=== PATIENT | female | born 1980 | race Caucasian/White ===

== ENCOUNTER 2016-09-10 19:18 | Emergency (ER) | payer OTHER ==
[2016-09-10 19:53] VITALS: BP 138/97
[2016-09-10] MEDS ORDERED: NALBUPHINE HCL 20 MG/ML AMPUL IM ONE (20:03)
--- NOTE | 2016-09-10 20:10 | ERNOTE ---
Lower Extremity HPI - Narrative Date of Service: 09/10/16 - General Lower Extremities Pain: hip: right Source: patient - Immun/Allergies/Home Medications Immunizations: IMMUNIZATION HX Immunizations Up to Date Yes History of Influenza Vaccine No Hx Pneumococcal Vaccination No Allergies/Adverse Reactions: Allergies Allergy/AdvReac Type Severity Reaction Status Date / Time lidocaine Allergy Mild swelling Verified 05/12/16 15:39 at site lithium AdvReac Severe Other Verified 05/12/16 15:39 trazodone AdvReac Intermediate PALPITATION Verified 05/12/16 15:39 S adhesive tape AdvReac Mild LATEX Verified 05/12/16 15:39 CLOTH TAPE RIPS SKIN OFF azithromycin [From Zithromax] AdvReac Mild diarrhea, Verified 05/12/16 15:39 vomiting cephalexin monohydrate AdvReac Mild Vomiting Verified 05/12/16 15:39 [From Keflex] clonazepam [From Klonopin] AdvReac Mild CRYING Verified 05/12/16 15:39 latex AdvReac Mild RASH Verified 05/12/16 15:39 milk AdvReac Mild Diarrhea Verified 05/12/16 15:39 onion AdvReac Mild RASH, GI Verified 05/12/16 15:39 UPSET povidone-iodine AdvReac Mild rash Verified 05/12/16 15:39 [From Betadine] ropinirole HCl [From Requip] AdvReac Mild Vomiting Verified 05/12/16 15:39 soap [From Betadine] AdvReac Mild rash Verified 05/12/16 15:39 Home Medications: HOME MEDICATIONS Metoprolol Succinate [Toprol Xl] 400 mg PO DAILY 12/08/14 [Last Taken Unknown] Albuterol Sulfate [Proair Hfa] 1 - 2 puff IH Q4H PRN #1 inhaler 10/30/15 [Last Taken Unknown] Fluticasone Propionate [Flonase] 2 spray NS DAILY PRN 12/06/15 [Last Taken Unknown] Mometasone Furoate [Asmanex] 1 puff IH DAILY 12/06/15 [Last Taken Unknown] Omeprazole [Prilosec] 40 mg PO BID 12/06/15 [Last Taken Unknown] Ondansetron [Zofran Odt] 4 mg PO Q8H PRN 12/06/15 [Last Taken Unknown] Cyclobenzaprine HCl [Flexeril] 10 mg PO TID PRN #30 tab 03/27/16 [Last Taken Unknown] - History of Present Illness Narrative: 36 year old with chronic right hip pain has an appointment for a cortisone injection in 5 days but is having so much pain she cannot sleep. She realizes I can not prescribe narcotics for chronic pain but states last time this happened she got a shot of Nubain in the ER and it worked very well and lasted for days Review of Systems - Review of Systems Constitutional: Present: no symptoms reported EYE: Present: no symptoms reported ENT: Present: no symptoms reported Respiratory: Present: no symptoms reported Cardiology: Present: no symptoms reported Gastrointestinal/Abdominal: Present: no symptoms reported Genitourinary: Present: no symptoms reported Musculoskeletal: Present: See HPI Skin: Present: no symptoms reported Neurological: Present: no symptoms reported Endocrine: Present: no symptoms reported Hematologic/Lymphatic: Present: no symptoms reported Psych: Present: no symptoms reported - Patient's Past Medical History Patient History - Medical: Anxiety, Chronic Pain, Diabetes Type 2, Depression, GERD, Migraines, Seizures Patient History - Cardiac/Respiratory: Hypertension, Hypertension Patient History - Cancer: No Hx of Cancer Patient History - Surgical Procedures: Appendectomy, Cholecystectomy, , Tubal Ligation, T & A LMP (females 10-50): now - Family History mom Family History - Medical: History Unknown dad Family History - Medical: History Unknown Family History - Cardiac/Respiratory: No pertinent hx - Social History Living Situations: home Smoking Status: Current every day smoker Have you smoked in the past 12 months: Yes Do you dip or chew tobacco: No Patient requests Smoking Cessation Consult: No Initiate information on Smoking Cessation: No Alcohol Use: none Drug Use: none Physical Exam - Physical Exam General Appearance: Present: wd/wn, alert, moderate distress, obese Eye Exam: Normal inspection: bilateral, PERRL: bilateral Ears, Nose, Throat: Present: normal ENT inspection, hearing grossly normal, normal pharynx Neck: Present: normal inspection, nontender Respiratory: Present: no respiratory distress, normal breath sounds, no accessory muscle use, chest nontender, lungs clear Cardiovascular/Chest: Present: regular rate, rhythm, no murmur, normal peripheral pulses Gastrointestinal/Abdominal: Present: normal bowel sounds, nontender, nondistended, soft, no organomegaly Rectal Exam: Present: deferred Back Exam: Present: normal inspection, normal range of motion, no CVA tenderness , no vertebral tenderness Extremity Exam: Present: normal inspection, no edema, other - Pain in right hip joint Neurological Exam: Present: alert, oriented, normal mood/affect, no motor/ sensory deficits Skin Exam: Present: normal color, warm/dry Lymphatic Exam: Present: no adenopathy ED Progress - Vital Signs Vital Signs: Vital Signs 09/10/16 19:48 Temperature 36.3 C L Pulse Rate 80 Respiratory 16 Rate Blood Pressure 138/97 O2 Sat by Pulse 97 Oximetry - Progress/Reassessment Chief Complaint: Hip Pain/Injury Plan - Plan Plan: IM Nubain Departure Clinical Impression: Chronic right hip pain - Departure Disposition: Home self-care Condition: Fair Instructions: Hip Pain Additional Instructions: follow up with Dr. Diego Jessica as planned Referrals: Joel Meraz MD [Primary Care Provider] -
[2016-09-10] MEDS ORDERED: NALBUPHINE HCL 20 MG/ML AMPUL ONE (20:11)
== END 2016-09-10 20:21 | disposition home or self-care (01) ==
LOC: ER 19:18
DX: G89.29 Other chronic pain (principal); M25.551 Pain in right hip; F17.210 Nicotine dependence, cigarettes, uncomplicated; Z90.49 Acquired absence of other specified parts of digestive tract; K21.9 Gastro-esophageal reflux disease without esophagitis; I10 Essential (primary) hypertension

== ENCOUNTER 2016-09-14 09:26 | Emergency (ER) | payer OTHER ==
--- NOTE | 2016-09-14 09:56 | ERNOTE ---
Lower Extremity HPI - Narrative Date of Service: 09/14/16 - General Lower Extremities Pain: hip: right Time Seen by Provider: 09/14/16 09:55 Source: patient Exam Limitations: no limitations - Immun/Allergies/Home Medications Immunizations: IMMUNIZATION HX Immunizations Up to Date Yes History of Influenza Vaccine No Hx Pneumococcal Vaccination No Allergies/Adverse Reactions: Allergies Allergy/AdvReac Type Severity Reaction Status Date / Time lidocaine Allergy Mild swelling Verified 09/14/16 09:41 at site lithium AdvReac Severe Other Verified 09/14/16 09:41 trazodone AdvReac Intermediate PALPITATION Verified 09/14/16 09:41 S adhesive tape AdvReac Mild LATEX Verified 09/14/16 09:41 CLOTH TAPE RIPS SKIN OFF azithromycin [From Zithromax] AdvReac Mild diarrhea, Verified 09/14/16 09:41 vomiting cephalexin monohydrate AdvReac Mild Vomiting Verified 09/14/16 09:41 [From Keflex] clonazepam [From Klonopin] AdvReac Mild CRYING Verified 09/14/16 09:41 latex AdvReac Mild RASH Verified 09/14/16 09:41 milk AdvReac Mild Diarrhea Verified 09/14/16 09:41 onion AdvReac Mild RASH, GI Verified 09/14/16 09:41 UPSET povidone-iodine AdvReac Mild rash Verified 09/14/16 09:41 [From Betadine] ropinirole HCl [From Requip] AdvReac Mild Vomiting Verified 09/14/16 09:41 soap [From Betadine] AdvReac Mild rash Verified 09/14/16 09:41 Home Medications: HOME MEDICATIONS Metoprolol Succinate [Toprol Xl] 400 mg PO DAILY 12/08/14 [Last Taken Unknown] Albuterol Sulfate [Proair Hfa] 1 - 2 puff IH Q4H PRN #1 inhaler 10/30/15 [Last Taken Unknown] Fluticasone Propionate [Flonase] 2 spray NS DAILY PRN 12/06/15 [Last Taken Unknown] Mometasone Furoate [Asmanex] 1 puff IH DAILY 12/06/15 [Last Taken Unknown] Omeprazole [Prilosec] 40 mg PO BID 12/06/15 [Last Taken Unknown] Ondansetron [Zofran Odt] 4 mg PO Q8H PRN 12/06/15 [Last Taken Unknown] Cyclobenzaprine HCl [Flexeril] 10 mg PO TID PRN #30 tab 03/27/16 [Last Taken Unknown] Cyclobenzaprine HCl [Flexeril] 10 mg PO TID PRN #30 tab 09/14/16 [Last Taken Unknown] Naproxen [Naprosyn] 500 mg PO BID #60 tablet 09/14/16 [Last Taken Unknown] - History of Present Illness Occurred: other - chronic Other Injuries: Reports: none Prior Treament: Reports: treated by physician Review of Systems - Review of Systems Constitutional: Present: See HPI EYE: Present: no symptoms reported ENT: Present: no symptoms reported Respiratory: Present: no symptoms reported Cardiology: Present: no symptoms reported Gastrointestinal/Abdominal: Present: no symptoms reported Genitourinary: Present: no symptoms reported Musculoskeletal: Present: muscle pain, joint pain Skin: Present: no symptoms reported Neurological: Present: no symptoms reported Endocrine: Present: no symptoms reported Hematologic/Lymphatic: Present: no symptoms reported Psych: Present: no symptoms reported - Patient's Past Medical History Patient History - Medical: Anxiety, Chronic Pain, Diabetes Type 2, Depression, GERD, Migraines, Seizures Patient History - Cardiac/Respiratory: Hypertension, Hypertension Patient History - Cancer: No Hx of Cancer Patient History - Surgical Procedures: Appendectomy, Cholecystectomy, , Tubal Ligation, T & A - Family History mom Family History - Medical: History Unknown dad Family History - Medical: History Unknown Family History - Cardiac/Respiratory: No pertinent hx - Social History Living Situations: home Alcohol Use: none Drug Use: none Physical Exam - Physical Exam General Appearance: Present: wd/wn, alert, moderate distress Eye Exam: Normal inspection: bilateral, PERRL: bilateral Ears, Nose, Throat: Present: normal ENT inspection, hearing grossly normal, normal pharynx Neck: Present: normal inspection, nontender Respiratory: Present: no respiratory distress, normal breath sounds, no accessory muscle use, chest nontender, lungs clear Cardiovascular/Chest: Present: no murmur, normal peripheral pulses, tachycardia Gastrointestinal/Abdominal: Present: normal bowel sounds, nontender, nondistended, soft, no organomegaly Rectal Exam: Present: deferred Back Exam: Present: normal inspection, normal range of motion Extremity Exam: Present: normal inspection, no edema, other - tenderness along the IT Band Neurological Exam: Present: alert, oriented, normal mood/affect Skin Exam: Present: normal color, warm/dry Lymphatic Exam: Present: no adenopathy ED Progress - Vital Signs Patient's Vital Signs:: I have reviewed the patient's vital signs. Vital Signs: Vital Signs 09/14/16 09:36 Temperature 36.4 C L Pulse Rate 111 H Respiratory 12 Rate Blood Pressure 147/98 O2 Sat by Pulse 98 Oximetry - Progress/Reassessment Chief Complaint: Hip Pain/Injury Progress:: Improved - Transfer of Care Expected Disposition: Discharge Plan - Plan Plan: Pt will be started on NSAID's and a muscle relaxer. She would likely benefit from a compounded NSAID cream for further pain and inflammation management. Departure Clinical Impression: IT band syndrome Qualifiers: Laterality: right Qualified Code(s): M76.31 - Iliotibial band syndrome, right leg - Departure Disposition: Home self-care Condition: Good Instructions: Iliotibial Band Syndrome Referrals: Joel Meraz MD [Primary Care Provider] - Prescriptions: Cyclobenzaprine HCl [Flexeril] 10 mg PO TID PRN #30 tab PRN Reason: MUSCLE SPASMS Naproxen [Naprosyn] 500 mg PO BID #60 tablet
[2016-09-14] MEDS ORDERED: ORPHENADRINE CITRATE 30 MG/ML VIAL IM ONE (10:13)
[2016-09-14] MEDS ORDERED: KETOROLAC TROMETHAMINE 30 MG/ML VIAL IM ONE (10:13)
[2016-09-14] MEDS ORDERED: KETOROLAC TROMETHAMINE 60 MG/2 ML VIAL IM ONE (10:15)
[2016-09-14] MEDS ORDERED: ORPHENADRINE CITRATE 30 MG/ML VIAL ONE (10:15)
[2016-09-14 10:33] VITALS: BP 135/99
== END 2016-09-14 10:46 | disposition home or self-care (01) ==
LOC: ER 09:26
DX: M76.31 Iliotibial band syndrome, right leg (principal); Z90.49 Acquired absence of other specified parts of digestive tract; K21.9 Gastro-esophageal reflux disease without esophagitis; I10 Essential (primary) hypertension

== ENCOUNTER 2016-09-21 13:22 | Emergency (ER) | payer OTHER ==
[2016-09-21 13:39] VITALS: BP 155/100
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
[2016-09-21] MEDS ORDERED: KETOROLAC TROMETHAMINE 60 MG/2 ML VIAL IM ONE ×2 (14:07→14:19)
[2016-09-21] MEDS ORDERED: HYDROcodone/ACETAMINOPHEN 1 EACH TABLET PO ONE (14:07)
[2016-09-21] MEDS ORDERED: HYDROcodone/ACETAMINOPHEN 1 EACH TABLET ONE (14:19)
== END 2016-09-21 15:14 | disposition home or self-care (01) ==
LOC: ER 13:22
DX: M54.5 Low back pain (principal); G89.29 Other chronic pain; M25.551 Pain in right hip; F17.200 Nicotine dependence, unspecified, uncomplicated

== ENCOUNTER 2016-09-24 17:08 | Emergency (ER) | payer OTHER ==
[2016-09-24 17:24] VITALS: BP 163/93
== END 2016-09-24 19:34 | disposition left against medical advice (07) ==
LOC: ER 17:08
DX: Z53.21 Procedure and treatment not carried out due to patient leaving prior to being seen by health care provider (principal)

== ENCOUNTER 2016-10-21 10:31 | Emergency (ER) | payer OTHER ==
[2016-10-21] MEDS ORDERED: NORMAL SALINE 1,000 ML IV ONE (10:49)
[2016-10-21] MEDS ORDERED: METOCLOPRAMIDE HCL 5 MG/ML VIAL IV ONE (10:49)
[2016-10-21] MEDS ORDERED: KETOROLAC TROMETHAMINE 30 MG/ML VIAL IV ONE (10:49)
--- NOTE | 2016-10-21 10:49 | ERNOTE ---
Medical Problem HPI - Narrative Date of Service: 10/21/16 - General Chief Complaint: Nausea/Vomiting Time Seen by Provider: 10/21/16 10:44 Source: patient Exam Limitations: no limitations - Immun/Allergies/Home Medications Immunizations: IMMUNIZATION HX Immunizations Up to Date Yes History of Influenza Vaccine Yes Hx Pneumococcal Vaccination No Allergies/Adverse Reactions: Allergies lidocaine Allergy (Mild, Verified 10/21/16 10:44) swelling at site lithium Adverse Reaction (Severe, Verified 10/21/16 10:44) Other Suicidal ideations trazodone Adverse Reaction (Intermediate, Verified 10/21/16 10:44) PALPITATIONS adhesive tape Adverse Reaction (Mild, Verified 10/21/16 10:44) LATEX CLOTH TAPE RIPS SKIN OFF azithromycin [From Zithromax] Adverse Reaction (Mild, Verified 10/21/16 10:44) diarrhea, vomiting cephalexin monohydrate [From Keflex] Adverse Reaction (Mild, Verified 10/21/16 10:44) Vomiting clonazepam [From Klonopin] Adverse Reaction (Mild, Verified 10/21/16 10:44) CRYING latex Adverse Reaction (Mild, Verified 10/21/16 10:44) RASH milk Adverse Reaction (Mild, Verified 10/21/16 10:44) Diarrhea onion Adverse Reaction (Mild, Verified 10/21/16 10:44) RASH, GI UPSET povidone-iodine [From Betadine] Adverse Reaction (Mild, Verified 09/24/16 17:24) rash ropinirole HCl [From Requip] Adverse Reaction (Mild, Verified 09/24/16 17:24) Vomiting soap [From Betadine] Adverse Reaction (Mild, Verified 09/24/16 17:24) rash Home Medications: HOME MEDICATIONS Metoprolol Succinate [Toprol Xl] 400 mg PO DAILY 12/08/14 [Last Taken Unknown] Albuterol Sulfate [Proair Hfa] 1 - 2 puff IH Q4H PRN #1 inhaler 10/30/15 [Last Taken Unknown] Fluticasone Propionate [Flonase] 2 spray NS DAILY PRN 12/06/15 [Last Taken Unknown] Mometasone Furoate [Asmanex] 1 puff IH DAILY 12/06/15 [Last Taken Unknown] Omeprazole [Prilosec] 40 mg PO BID 12/06/15 [Last Taken Unknown] Ondansetron [Zofran Odt] 4 mg PO Q8H PRN 12/06/15 [Last Taken Unknown] Cyclobenzaprine HCl [Flexeril] 10 mg PO TID PRN #30 tab 09/14/16 [Last Taken Unknown] Naproxen [Naprosyn] 500 mg PO BID #60 tablet 09/14/16 [Last Taken Unknown] Methylprednisolone [Medrol Dosepak] 4 mg PO DAILY #21 tab.ds.pk 09/21/16 [Last Taken Unknown] Bisacodyl [Dulcolax] 5 mg PO BID #6 tab 10/21/16 [Last Taken Unknown] Docusate Sodium [Doc-Q-Lace] 100 mg PO BID 10/21/16 [Last Taken Unknown] Magnesium Citrate [Citrate of Magnesia] 300 ml PO TID #9 btl 10/21/16 [Last Taken Unknown] Metoclopramide HCl [Reglan] 5 mg PO ACHS #12 tab 10/21/16 [Last Taken Unknown] Oxycodone HCl/Acetaminophen [Percocet 10-325 mg Tablet] 7.5 mg PO PRN PRN [Last Taken Unknown] Sulindac 200 mg PO BID #6 tab 10/21/16 [Last Taken Unknown] - History of Present History Narrative: Was discharged from [facility] 2 days ago after a hysterectomy. Ovaries left intact. Several episodes of vomiting daily since, and nauseated today. Sent home with Percocet for pain. One bowel movement yesterday with hard textured stool. Bladder working ok. No fever. LLQ and midline low abdominal pain. Timing: constant Severity: moderate, severe Modifying Factors - (Improves): Present: other - nothing Modifying Factors - (Worsens): Present: eating Review of Systems - Review of Systems Constitutional: Present: no symptoms reported EYE: Present: no symptoms reported ENT: Present: no symptoms reported Respiratory: Present: no symptoms reported Cardiology: Present: no symptoms reported Gastrointestinal/Abdominal: Present: See HPI Genitourinary: Present: See HPI Musculoskeletal: Present: no symptoms reported Skin: Present: no symptoms reported Neurological: Present: no symptoms reported Endocrine: Present: no symptoms reported Hematologic/Lymphatic: Present: no symptoms reported Psych: Present: no symptoms reported - Patient's Past Medical History Patient History - Medical: Anxiety, Chronic Pain, Diabetes Type 2, Depression, GERD, Migraines, Seizures Patient History - Cardiac/Respiratory: No pertinent hx Patient History - Cancer: No Hx of Cancer Patient History - Surgical Procedures: Appendectomy, Cholecystectomy, , Hysterectomy, Tubal Ligation, T & A Patient History - Other: None LMP (females 10-50): 1 month - Family History mom Family History - Medical: History Unknown dad Family History - Medical: History Unknown Family History - Cardiac/Respiratory: No pertinent hx - Social History Living Situations: spouse Abuse History: No History of abuse Psych History: Hx of Anxiety, Hx of Depression Smoking Status: Current every day smoker Have you smoked in the past 12 months: Yes Do you dip or chew tobacco: No Patient requests Smoking Cessation Consult: No Initiate information on Smoking Cessation: No Alcohol Use: none Drug Use: none - Immunizations Immunizations Up to Date: Yes Hx Pneumococcal Vaccination: No History of Influenza Vaccine: Yes Physical Exam - Physical Exam General Appearance: Present: wd/wn, no apparent distress Eye Exam: Normal inspection: bilateral, PERRL: bilateral, EOMI: bilateral Ears, Nose, Throat: Present: normal ENT inspection, hearing grossly normal Neck: Present: normal inspection, nontender Respiratory: Present: no respiratory distress, normal breath sounds Cardiovascular/Chest: Present: regular rate, rhythm, no murmur Gastrointestinal/Abdominal: Present: normal bowel sounds, nondistended, soft, no organomegaly, tenderness - minimal tenderness low midnight and LLQ Back Exam: Present: normal inspection, no CVA tenderness, no vertebral tenderness Extremity Exam: Present: normal inspection, no edema Neurological Exam: Present: alert, oriented, normal mood/affect Skin Exam: Present: normal color, warm/dry ED Progress - Results and Orders Patient's Lab Results:: I have reviewed the patient's lab results. - Vital Signs Patient's Vital Signs:: I have reviewed the patient's vital signs. Vital Signs: Vital Signs 10/21/16 10:33 Temperature 37.0 C Pulse Rate 89 Respiratory 15 Rate Blood Pressure 129/94 O2 Sat by Pulse 95 Oximetry - X-Ray X-Ray #1 X-Ray: abdomen Interpretation: Interp. by me - constipation - Progress/Reassessment Chief Complaint: Nausea/Vomiting Progress Note-Subjective: 10/21/16 13:09 eating now without any difficulty. still no bm. refused rectal suppository. Departure - Departure Clinical Impression: Abdominal pain Qualifiers: Abdominal location: left lower quadrant Qualified Code(s): R10.32 - Left lower quadrant pain Constipation Qualifiers: Constipation type: slow transit constipation Qualified Code(s): K59.01 - Slow transit constipation Disposition: Home self-care Condition: Good Instructions: Constipation, Adult, [id number] Additional Instructions: Followup with Dr. Kearns in 4 days. Prescriptions: Bisacodyl [Dulcolax] 5 mg PO BID #6 tab Magnesium Citrate [Citrate of Magnesia] 300 ml PO TID #9 btl Metoclopramide HCl [Reglan] 5 mg PO ACHS #12 tab Sulindac 200 mg PO BID #6 tab
[2016-10-21] MEDS ORDERED: BISACODYL 10 MG SUPP.RECT RC ONE ×2 (10:51→10:54)
[2016-10-21] MEDS ORDERED: KETOROLAC TROMETHAMINE 30 MG/ML VIAL ONE (10:55)
[2016-10-21] MEDS ORDERED: METOCLOPRAMIDE HCL 5 MG/ML VIAL ONE (10:55)
[2016-10-21 10:57] LABS: Urine Bilirubin Negative (NEGATIVE); Urine Ketone Negative (NEGATIVE); Urine Nitrite Negative (NEGATIVE); Urine Protein Negative (NEGATIVE); Urine Urobilinogen Normal (NORMAL)
--- OUTSIDE RECORDS SUMMARY | 2016-10-21 11:00 | XMS REPORT | Summary of Care ---
:1980 Author Organization [facility] Address [address] [place] [phone]- Care Team Providers Name Role Phone Joel Kearns Primary Care Physician Encounter Date(s): 09/27/16 - 09/27/[address] [address]- [facility] Discharge Disposition: 01 Discharged to Home or Self Care Attending Physician: Geoff Peters MD Admitting Physician: Geoff Peters MD Vital Signs No data available for this section Problem List Condition Effective Dates Status Health Status Informant (Confirmed) < 2004 Resolved (Confirmed) < 1999 Resolved (Confirmed) < 2005 Resolved (Confirmed) < 2004 Resolved (Confirmed) < 12/09/04 Resolved (Confirmed) < 02/19/01 Resolved (Confirmed) < 03/27/02 Resolved (Confirmed) < 11/07/03 Resolved Allergies, Adverse Reactions, Alerts Substance Reaction Severity Status Adhesive Bandage Skin adhesive Active Betadine Rash Active Keflex Vomit Active Latex Rash Active lidocaine Swelling Active Zithromax Sick Active Medications ALPRAZolam 0.25 mg oral tablet 1 tab(s), Oral, TID, 0 Refill(s), Start Date: 04/26/16 15:13:00 CDT Start Date: 04/26/16 Status: Orderedamoxicillin 500 mg oral tablet 1 tab(s), Oral, TID, # 30 tab(s), 0 Refill(s), Start Date: 05/09/16 11:41:00 CDT Start Date: 05/09/16 Stop Date: 05/15/16 Status: CompletedAsmanex Twisthaler 110 mcg=, Inhale, Daily, 0 Refill(s), Start Date: 04/26/16 15:15:00 CDT Start Date: 04/26/16 Status: Orderedatorvastatin 40 mg oral tablet 1 tab(s), Oral, Daily, 0 Refill(s), Start Date: 04/26/16 15:15:00 CDT Start Date: 04/26/16 Status: Orderedcetirizine 10 mg oral tablet tab(s), Oral, Daily, 0 Refill(s), Start Date: 04/26/16 15:14:00 CDT Start Date: 04/26/16 Stop Date: 05/02/16 Status: Discontinuedcyclobenzaprine 10 mg oral tablet 1 tab(s), Oral, TID, PRN for spasm, # 30 tab(s), 0 Refill(s), Start Date: 15:14:00 CDT Start Date: 04/26/16 Stop Date: 05/09/16 Status: CompletedDexilant 60 mg oral delayed release capsule 1 cap(s), Oral, Daily, # 30 cap(s), 2 Refill(s), Start Date: 05/15/16 8:41:00 CDT, Pharmacy: [facility] Start Date: 05/15/16 Status: Ordereddicyclomine 10 mg oral capsule See Instructions, PRN abdominal pain, 1-2 cap(s) Oral up to four times a day, # 60 cap(s), 1 Refill(s), Start Date: 07/25/16 9:25:00 HULL SORTER, Pharmacy: [facility] Start Date: 07/25/16 Stop Date: 09/14/16 Status: Completeddicyclomine 10 mg oral capsule 2 cap(s), Oral, QID, PRN abdominal pain, # 60 cap(s), 1 Refill(s), Start Date: 05/15/16 8:39:00 CDT, Pharmacy: [facility] Start Date: 05/15/16 Status: Ordereddiphenoxylate-atropine 2.5 mg-0.025 mg oral tablet See Instructions, PRN as needed for loose stool, 1-2 tab(s) Oral up to four times a day, # 60 tab(s), 0 Refill(s), Start Date: 07/03/16 13:55:00 CDT, Pharmacy: [place], [place] Start Date: 07/03/16 Stop Date: 09/14/16 Status: Completeddivalproex sodium 500 mg oral tablet, extended release tab(s), Oral, Daily, 0 Refill(s), Start Date: 04/26/16 15:14:00 CDT Start Date: 04/26/16 Stop Date: 05/09/16 Status: Completedfluticasone 50 mcg/inh nasal spray 1 spray(s), Nasal, Daily, 0 Refill(s), Start Date: 04/26/16 15:16:00 CDT Start Date: 04/26/16 Status: OrderedLiletta 52 mg intrauterine device 1 EA, Intrauteral, ONETIME, 0 Refill(s), Start Date: 06/16/16 10:58:00 CDT Start Date: 06/16/16 Status: Orderedmeloxicam 15 mg oral tablet 1 tab(s), Oral, Daily, # 30 tab(s), 5 Refill(s), Start Date: 09/22/16 15:12:00 HULL SORTER, Pharmacy: [place], [place] Start Date: 09/22/16 Status: Orderedmetoprolol succinate 200 mg oral tablet, extended release 2 tab(s), Oral, Daily, # 30 tab(s), 0 Refill(s), Start Date: 05/09/16 11:40:00 CDT Start Date: 05/09/16 Status: Orderedmetoprolol tartrate BID, 0 Refill(s), Start Date: 04/26/16 15:13:00 CDT Start Date: 04/26/16 Stop Date: 05/09/16 Status: Completedomeprazole 40 mg oral delayed release capsule 1 cap(s), Oral, Daily, 0 Refill(s), Start Date: 04/26/16 15:14:00 CDT Start Date: 04/26/16 Status: Orderedranitidine 300 mg oral tablet 1 tab(s), Oral, HS, 0 Refill(s), Start Date: 04/26/16 15:15:00 CDT Start Date: 04/26/16 Status: OrderedrisperiDONE 2 mg oral tablet 1 tab(s), Oral, HS, 0 Refill(s), Start Date: 04/26/16 15:14:00 CDT Start Date: 04/26/16 Status: Orderedsertraline 50 mg oral tablet tab(s), Oral, Daily, 0 Refill(s), Start Date: 04/26/16 15:15:00 CDT Start Date: 04/26/16 Stop Date: 05/02/16 Status: DiscontinuedTylenol with Codeine #3 oral tablet 1 tab(s), Oral, q4hr, PRN for pain, # 12 tab(s), 0 Refill(s), Start Date: 11:17:00 CDT, Pharmacy: [place] Start Date: 06/16/16 Stop Date: 06/30/16 Status: CompletedVentolin HFA 2 puff(s), Inhale, QID, PRN as needed for wheezing, 0 Refill(s), Start Date: 15:15:00 CDT Start Date: 04/26/16 Status: OrderedZofran 4 mg oral tablet 1 tab(s), Oral, q8hr interval, PRN nausea, 0 Refill(s), Start Date: 04/26/16 15: 15:00 CDT Start Date: 04/26/16 Status: Ordered Results No data available for this section Immunizations No data available for this section Procedures Procedure Date Related Diagnosis Body Site Esophagogastroduodenoscopy1 05/11/16 Hysteroscopy 09/2015 Miscellaneous operations2 2012 Appendectomy 2012 Colposcopy 2010 Cone biopsy 2010 TL - Tubal ligation 01/01/09 section 2005 Cholecystectomy 2004 Tonsillectomy and adenoidectomy 1986 Dilation and curettage3 1auto-populated from documented surgical [id number] worked on 3 times throughout 2012 and [id number] Social History No data available for this section Assessment and Plan No data available for this section
--- OUTSIDE RECORDS SUMMARY | 2016-10-21 11:00 | XMS REPORT | Continuity of Care Document ---
:1980 Author Organization [facility] [place] [address] Care Team Providers Name Role Phone Unavailable Primary Care Provider Unavailable Source Comments This disclosure is being made pursuant to the [employer] program and maynot contain all information available regarding this patient.[facility] Active Allergies and Adverse Reactions Not on File Current Medications Be aware that medications may not be up to date as of this document. Alwaysverify current medications with the patient. Not on file Active Problems Not on file Social History Tobacco Use Types Packs/Day Years Used Date Current Every Day Smoker Plan of Care Health Maintenance Due Date Last Done Comments Retired-Pertussis Vaccine Adult 1998 Retired-Tetanus Vaccine Adult 1998 Pap Smear 2000 Retired-INFLUENZA VACCINE 05/04/2015 Results from Last 3 Months Not on file
--- OUTSIDE RECORDS SUMMARY | 2016-10-21 11:00 | XMS REPORT | Summary of Care ---
:1980 Author Organization [facility] Address [address] [place] [address]- Care Team Providers Name Role Phone Joel Kearns Primary Care Physician Encounter Date(s): 10/12/16 - 10/12/[address] [address]- [facility] Discharge Disposition: 01 Discharged to Home or Self Care Attending Physician: Jewels Brown MD Vital Signs No data available for [...] Refill(s), Start Date: 05/15/16 8:41:00 CDT, Pharmacy: [facility] Start Date: 05/15/16 Status: Ordereddicyclomine 10 mg oral capsule See Instructions, PRN abdominal pain, 1-2 cap(s) Oral up to four times a day, # 60 cap(s), 1 Refill(s), Start Date: 07/25/16 9:25:00 SAFETY ADMINISTRATOR, Pharmacy: [facility] Special Instructions: 1-2 cap(s) Oral up to four times a day Start Date: 07/25/16 Stop Date: 09/14/16 Status: Completeddicyclomine 10 mg oral capsule 2 cap(s), Oral, QID, PRN abdominal pain, # 60 cap(s), 1 Refill(s), Start Date: 05/15/16 8:39:00 CDT, Pharmacy: [facility] Start Date: 05/15/16 Status: Ordereddiphenoxylate-atropine 2.5 mg-0.025 mg oral tablet See Instructions, PRN as needed for loose stool, 1-2 tab(s) Oral up to four times a day, # 60 tab(s), 0 Refill(s), Start Date: 07/03/16 13:55:00 CDT, Pharmacy: [place], [place] Special Instructions: 1-2 tab(s) Oral up to four times a day Start Date: 07/03/16 Stop Date: 09/14/16 Status: [...] tab(s), 5 Refill(s), Start Date: 09/22/16 15:12:00 SAFETY ADMINISTRATOR, Pharmacy: [place], [place] Start Date: 09/22/16 Status: Orderedmetoprolol succinate [...] 0 Refill(s), Start Date: 11:17:00 CDT, [place] Start Date: 06/16/16 Stop Date: 06/30/16 [...] Dilation and curettage3 1auto-populated from documented surgical [id number] worked on 3 times throughout 2012 and [id number] Social History No data available for this section Assessment and Plan No data available for this section
--- OUTSIDE RECORDS SUMMARY | 2016-10-21 11:00 | XMS REPORT | Continuity of Care Document ---
:1980 Author Organization [facility] ([facility]) Address [address] [place] [address] Phone [phone] Care Team Providers Name Role Phone Joel Kearns Primary Care Provider [phone] Source Comments This disclosure is being made pursuant to the Care Everywhere program, applicable federal and state laws, and may not contain all informaitonavailable regarding this patient.[facility] ([facility]) Active Allergies and Adverse Reactions Allergen Noted Date Severity Reactions Comments Azithromycin Nausea & Vomiting Cephalexin 02/17/2016 Unknown Cephalosporins Urticaria (Hives),Nausea & Vomiting Clonazepam 02/17/2016 Unknown Iodine Urticaria (Hives) topical Latex 02/17/2016 Unknown Lidocaine Angioedema,Unknown Milk Containing Products Nausea & Vomiting Onion Urticaria (Hives) Ropinirole 02/17/2016 Unknown Tetanus Toxoid, Adsorbed Urticaria (Hives),Angioedema Trazodone 02/17/2016 Unknown Trimethobenzamide (Bulk) Nausea & Vomiting Current Medications Prescription Sig. Disp. Refills Start Date End Date Status ondansetron 4 mg 4mg every 8hours as 11/26/2015 Active disintegrating tablet needed by mouth SERTraline 50 mg tablet take 1 tablet (50 12/20/2015 Active mg) by oral route once daily metoPROLol succinate Take 300 mg by 01/11/2016 01/05/2017 Active 100 mg XL tablet mouth daily. 3 by mouth at the same time once daily traMADol 50 mg tablet take 2 tablets (100 11/26/2015 Active mg) by oral route 4 times a day the same time as naproxen. ALPRAZolam 0.25 mg take 1 tablet (0.25 12/20/2015 Active tablet mg) by oral route 3 times per day PRN for anxiety omeprazole 40 mg take 1 capsule by 11/16/2015 Active enteric coated capsule oral route 2 times a day SYRINGE-NEEDLE,INSULIN, AIMS EVERY 6 01/11/2016 Active 0.5 ML (AIMSCO INSULIN MONTHS. 01/11/16 SYRINGE NA ) ALBUTEROL SULFATE 1-2 puffs every Active (BULK) NA 4-6hours prn given in ER 10-30-15 mometasone (ASMANEX) inhale 1 puff (220 11/26/2015 11/20/2016 Active 220 mcg (120 doses) mcg) by inhalation inhaler route once a day cetirizine 10 mg tablet take 1 tablet (10 11/26/2015 11/20/2016 Active mg) by oral route once daily divalproex 250 mg ER Take 500 mg by 09/27/2015 Active tablet 24 hour mouth daily. 1 by mouth at night with the sleeping pill, to block headache. fluticasone 50 spray 2 sprays (100 11/26/2015 11/20/2016 Active mcg/Actuation nasal mcg) in each spray nostril by intranasal route once daily (uses PRN) atorvastatin 40 mg Take 40 mg by mouth Active tablet every evening. Active Problems Problem Noted Date Atypical chest pain 02/17/2016 Anxiety 02/16/2016 Depression 02/16/2016 History of pancreatitis 02/16/2016 Seizure disorder 02/16/2016 Psychophysiological insomnia 11/29/2015 Herpes simplex virus (HSV) infection 08/18/2015 Irregular menstrual cycle 08/03/2015 Dysmenorrhea 08/03/2015 Restless legs syndrome 11/12/2014 Migraine 11/12/2014 Benign essential hypertension 11/12/2014 Personal history of tobacco use, presenting hazards to health 11/12/2014 HTN (hypertension) Palpitation Resolved Problems Problem Noted Date Resolved Date Other convulsions 01/21/2007 02/16/2016 Unspecified symptom associated with female genital organs 07/30/20062015 Most Recent Encounters Date Type Specialty Providers Description 10/20/2016 Lab Requisition Pathology [facility], [facility] Social History Tobacco Use Types Packs/Day Years Used Date Light Tobacco Smoker Cigarettes 0.25 15 Smokeless Tobacco: Never Used Tobacco Cessation:Ready to Quit: No; Counseling Given: Yes Comments: Alcohol Use Drinks/Week oz/Week Comments No Last Filed Vital Signs Vital Sign Reading Time Taken Blood Pressure 124/76 02/17/2016 12:55 PM CDT Pulse 70 02/17/2016 12:55 PM CDT Temperature 36.5 C (97.7 F) 02/17/2016 12:55 PM CDT Respiratory Rate 18 02/11/2009 5:38 AM CDT Height 1.676 m (5' 6") 02/17/2016 12:55 PM CDT Weight 101.152 kg (223 lb) 02/17/2016 12:55 PM CDT Body Mass Index 36.01 02/17/2016 12:55 PM CDT Oxygen Saturation 99% 02/11/2009 5:38 AM CDT Plan of Care Health Maintenance Due Date Last Done Comments Hepatitis B Vaccine (1 of 3 - Primary Series) 1980 DIABETIC: Cholesterol 1997 Diabetic: Hdl 1997 DIABETIC: Hemoglobin A1C 1997 Diabetic: Ldl 1997 DIABETIC: Microalbumin 1997 DIABETIC: Triglycerides 1997 MMR Vaccine 1997 Pneumococcal Vaccine (1 of 1 - PPSV23) 1998 Cervical Cancer Screening 2009 DIABETIC: Foot Exam 02/17/2016 DIABETIC: Retinal Eye Exam 02/17/2016 Influenza Vaccine: Seasonal (#1) 04/03/2016 Results from Last 3 Months SURGICAL PATHOLOGY EXAM (10/19/2016 9:00 AM) Component Value Range Case Report Surgical Pathology Case: [id number] Authorizing Provider:[facility], [facility] Collected: 10/19/2016 09:00 AM Pathologist: Nickie Rain MD Received: 10/20/2016 08:40 AM Specimens: A) - Outside material, 14 slides, 2 blocks labeled [id number] B) - Outside material Diagnosis Uterus and bilateral fallopian tubes, hysterectomy and bilateral salpingectomy ([id number]; 10/17/16): Uterus: Cervix with tubal metaplasia; negative for dysplasia. Proliferative endometrium. Adenomyosis. Fallopian tubes: Within normal limits. I have personally reviewed this case and edited the report as necessary. Clinical Information 36 year old woman with dysmenorrhea and menometrorrhagia. Microscopic Description Reviewed are 10 H and E stained slides and 4 immunostains (p16 x 2 and negative controls) labeled [id number] with the corresponding pathology report. Outside immunostains show areas of increased but mos aic pattern p16 positivity in glands with tubal metaplasia.Microscopic examination otherwise performed and supports the diagnosis. Performed by:Faye Saravia MD, R4 Specimen Tissue - Outside material
--- OUTSIDE RECORDS SUMMARY | 2016-10-21 11:01 | XMS REPORT | Summary of Care ---
:1980 Author Organization [facility] Address [address] [place] [address] Care Team Providers Name Role Phone Joel Kearns Primary Care Physician Encounter Date(s): 09/22/16 - 09/22/16 [facility] [address], [address] [place], [place] [address] Discharge Disposition: 01 Discharged to Home or Self Care Attending Physician: Geoff Peters MD Referring Physician: Geoff Peters MD Vital Signs Most recent to oldest [Reference Range]: 1 Peripheral Pulse Rate [60-100 bpm] 101 bpm *HI* (09/22/16 2:30 PM) Blood Pressure [90-130/60-90 mmHg] 163/110mmHg *HI* (09/22/16 2:30 PM) Mean Arterial Pressure, Cuff 128 mmHg (09/22/16 2:30 PM) Height/Length Measured 167 cm (09/22/16 2:30 PM) Weight Dosing 106.80 kg1 (09/22/16 2:33 PM) Weight Measured 106.8 kg (09/22/16 2:30 PM) BSA Measured 2.14 m2 (09/22/16 2:30 PM) Body Mass Index Measured 38.29 kg/m2 (09/22/16 2:30 PM) 1Result Comment: This result was because the dosing weight was either not entered or it is>30 days old. This result is based off: Weight Measured September 22, 2016 14:30:00 FOIL STAMP OPERATOR by Cailin Anderson CMA Problem List Condition Effective Dates Status Health [...] Refill(s), Start Date: 05/15/16 8:41:00 CDT, Pharmacy: [facility] Start Date: 05/15/16 Status: Ordereddicyclomine 10 mg oral capsule See Instructions, PRN abdominal pain, 1-2 cap(s) Oral up to four times a day, # 60 cap(s), 1 Refill(s), Start Date: 07/25/16 9:25:00 FOIL STAMP OPERATOR, Pharmacy: [facility] Start Date: 07/25/16 Stop Date: 09/14/16 Status: Completeddicyclomine 10 mg oral capsule 2 cap(s), Oral, QID, PRN abdominal pain, # 60 cap(s), 1 Refill(s), Start Date: 05/15/16 8:39:00 CDT, Pharmacy: [facility] Start Date: 05/15/16 Status: Ordereddiphenoxylate-atropine 2.5 mg-0.025 mg oral tablet See Instructions, PRN as needed for loose stool, 1-2 tab(s) Oral up to four times a day, # 60 tab(s), 0 Refill(s), Start Date: 07/03/16 13:55:00 CDT, Pharmacy: [place], [place] Start Date: 07/03/16 Stop Date: 09/14/16 [...] tab(s), 5 Refill(s), Start Date: 09/22/16 15:12:00 FOIL STAMP OPERATOR, Pharmacy: [place], [place] Start Date: 09/22/16 Status: Orderedmetoprolol succinate [...] 0 Refill(s), Start Date: 11:17:00 CDT, Pharmacy: [place] Start Date: 06/16/16 Stop Date: 06/30/16 [...] section 2005 Cholecystectomy 2004 Tonsillectomy and adenoidectomy 1987 Dilation and curettage3 1auto-populated from documented surgical [id number] worked on 3 times throughout 2012 and [id number] Social History No data available for this section Assessment and Plan No data available for this section
--- OUTSIDE RECORDS SUMMARY | 2016-10-21 11:01 | XMS REPORT | Summary of Care ---
:1980 Author Organization [facility] Address [address] [place] [address] Care Team Providers Name Role Phone Joel Kearns Primary Care Physician Encounter Date(s): 10/12/16 - 10/12/16 [facility], [address] [place] [address]- [facility] Discharge Disposition: 01 Discharged to Home or Self Care Attending Physician: Jewels Brown MD Referring Physician: Jewels Brown MD Vital Signs Most recent to oldest [Reference Range]: 1 Peripheral Pulse Rate [60-100 bpm] 98 bpm (10/12/16 1:07 PM) Blood Pressure [90-130/60-90 mmHg] 144/106mmHg *HI* (10/12/16 1:07 PM) Mean Arterial Pressure, Cuff 119 mmHg (10/12/16 1:07 PM) Most recent to oldest [Reference Range]: 1 Height/Length Measured 167 cm (10/12/16 1:07 PM) Weight Dosing 107.50 kg1 (10/12/16 1:12 PM) Weight Measured 107.5 kg (10/12/16 1:07 PM) BSA Measured 2.14 m2 (10/12/16 1:07 PM) Body Mass Index Measured 38.55 kg/m2 (10/12/16 1:07 PM) 1Result Comment: This result was because the dosing weight was either not entered or it is>30 days old. This result is based off: Weight Measured October 12, 2016 13:07:00 LEAN SIX SIGMA SENIOR SPECIALIST by Shahla Matute Merchandising Consultant Problem List Condition Effective Dates Status Health [...] Refill(s), Start Date: 05/15/16 8:41:00 CDT, Pharmacy: [facility] Start Date: 05/15/16 Status: Ordereddicyclomine 10 mg oral capsule See Instructions, PRN abdominal pain, 1-2 cap(s) Oral up to four times a day, # 60 cap(s), 1 Refill(s), Start Date: 07/25/16 9:25:00 LEAN SIX SIGMA SENIOR SPECIALIST, Pharmacy: [facility] Special Instructions: 1-2 cap(s) Oral up to four times a day Start Date: 07/25/16 Stop Date: 09/14/16 Status: Completeddicyclomine 10 mg oral capsule 2 cap(s), Oral, QID, PRN abdominal pain, # 60 cap(s), 1 Refill(s), Start Date: 05/15/16 8:39:00 CDT, Pharmacy: [facility] Start Date: 05/15/16 Status: Ordereddiphenoxylate-atropine 2.5 mg-0.025 mg oral tablet See Instructions, PRN as needed for loose stool, 1-2 tab(s) Oral up to four times a day, # 60 tab(s), 0 Refill(s), Start Date: 07/03/16 13:55:00 CDT, Pharmacy: [place], [place] Special Instructions: 1-2 tab(s) Oral up [...] tab(s), 5 Refill(s), Start Date: 09/22/16 15:12:00 LEAN SIX SIGMA SENIOR SPECIALIST, Pharmacy: [place], [place] Start Date: 09/22/16 Status: Orderedmetoprolol succinate [...] 0 Refill(s), Start Date: 11:17:00 CDT, Pharmacy: [place], [place] Start Date: 06/16/16 Stop Date: 06/30/16 [...] 05/11/16 Hysteroscopy 09/2015 Miscellaneous operations2 2012 Appendectomy 2011 Colposcopy 2010 Cone biopsy 2010 TL - Tubal ligation 01/01/09 section 2005 Cholecystectomy 2004 Tonsillectomy and adenoidectomy 1987 Dilation and curettage3 1auto-populated from documented surgical [id number] worked on 3 times throughout 2012 and [id number] Social History No data available for this section Assessment and Plan No data available for this section
--- OUTSIDE RECORDS SUMMARY | 2016-10-21 11:01 | XMS REPORT | Summary of Care ---
:1980 Author Organization [facility] Address [address] [place] [address] Care Team Providers Name Role Phone Joel Kearns Primary Care Physician Encounter Date(s): 09/28/16 - 09/28/16 [facility], [address] [place] [address]- [facility] Discharge Diagnosis: Malpositioned IUD Discharge Disposition: 01 Discharged to Home or Self Care Attending Physician: Jewels Brown MD Referring Physician: Jewels Brown MD Vital Signs Most recent to oldest [Reference Range]: 1 Peripheral Pulse Rate [60-100 bpm] 107 bpm *HI* (09/28/16 11:17 AM) Blood Pressure [90-130/60-90 mmHg] 136/103mmHg *HI* (09/28/16 11:17 AM) Mean Arterial Pressure, Cuff 114 mmHg (09/28/16 11:17 AM) Weight Dosing 106.50 kg1 (09/28/16 11:18 AM) Weight Measured 106.5 kg (09/28/16 11:17 AM) 1Result Comment: This result was because the dosing weight was either not entered or it is>30 days old. This result is based off: Weight Measured September 28, 2016 11:17:00 MANAGER ETL by Shahla Matute, Asphalt Roller Person Problem List Condition Effective Dates Status Health [...] Refill(s), Start Date: 05/15/16 8:41:00 CDT, Pharmacy: [facility] Start Date: 05/15/16 Status: Ordereddicyclomine 10 mg oral capsule See Instructions, PRN abdominal pain, 1-2 cap(s) Oral up to four times a day, # 60 cap(s), 1 Refill(s), Start Date: 07/25/16 9:25:00 MANAGER ETL, Pharmacy: [facility] Start Date: 07/25/16 Stop Date: 09/14/16 Status: Completeddicyclomine 10 mg oral capsule 2 cap(s), Oral, QID, PRN abdominal pain, # 60 cap(s), 1 Refill(s), Start Date: 05/15/16 8:39:00 CDT, Pharmacy: [facility] Start Date: 05/15/16 Status: Ordereddiphenoxylate-atropine 2.5 mg-0.025 mg oral tablet See Instructions, PRN as needed for loose stool, 1-2 tab(s) Oral up to four times a day, # 60 tab(s), 0 Refill(s), Start Date: 07/03/16 13:55:00 CDT, Pharmacy: [place], [place] Start Date: 07/03/16 Stop Date: 09/14/16 [...] tab(s), 5 Refill(s), Start Date: 09/22/16 15:12:00 MANAGER ETL, Pharmacy: [place], [place] Start Date: 09/22/16 Status: Orderedmetoprolol succinate [...] 0 Refill(s), Start Date: 11:17:00 CDT, Pharmacy: [place], [place] Start Date: 06/16/16 Stop Date: 06/30/16 [...] Dilation and curettage3 1auto-populated from documented surgical [id number] worked on 3 times throughout 2012 and [id number] Social History No data available for this section Assessment and Plan No data available for this section
[2016-10-21 11:04] LABS: Urine Appearance Clear; Urine Blood 10 /ul (NEGATIVE); Urine Color Yellow; Urine WBC TRACE /hpf (0-5)
[2016-10-21 11:05] LABS: Urine Bacteria TRACE; Urine Mucus Moderate - 2+
[2016-10-21 11:11] LABS: Hematocrit 38.9 % (37.0-47.0); Hemoglobin 13.2 gm/dL (12.5-16.0); Mean Cell Volume 88.4 fl (78-100); Mean Corpuscular Hgb Conc 33.9 g/dl (32-36); Mean Platelet Volume 10.1 fl (6.0-9.5); Neutrophil # 4.5 K/mm3 (1.3-6.0); Neutrophil % 67.7 % (42-75.0); Platelet Count 211 K/mm3 (150-450); Red Cell Distribution Width 13.4 % (11.5-14.0); White Blood Count 6.7 K/mm3 (4.0-10.5)
[2016-10-21 11:23] LABS: Anion Gap 12.1 mmol/L (6.8-13.8); Bilirubin, Total 0.4 mg/dL (0.0-1.1); Ca. Corrected For Albumin 9.8 mg/dL (8.4-10.2); Calcium * 9.3 mg/dL (7.9-10.9); Carbon Dioxide 26.4 mmol/L (24-32.6); Potassium 3.5 mmol/L (3.4-4.6); Total Protein 6.8 gm/dL (6.2-8.2)
[2016-10-21] MEDS ORDERED: MAGNESIUM CITRATE 300 ML BTL PO ONE (11:55)
[2016-10-21] MEDS ORDERED: BISACODYL 5 MG TABLET.DR PO ONE (11:56)
[2016-10-21] MEDS ORDERED: BISACODYL 5 MG TABLET.DR ONE (11:58)
[2016-10-21] MEDS ORDERED: MAGNESIUM CITRATE 300 ML BTL ONE (11:58)
[2016-10-21 12:05] LABS: Amylase * 78 U/L (25-115); Lipase 396 U/L (73-393)
[2016-10-21] MEDS ORDERED: SENNOSIDES 8.6 MG TABLET PO ONE (12:28)
[2016-10-21] MEDS ORDERED: SENNOSIDES 8.6 MG TABLET ONE (12:29)
[2016-10-21 12:47] VITALS: BP 133/96
== END 2016-10-21 13:22 | disposition home or self-care (01) ==
LOC: ER 10:31
DX: R10.32 Left lower quadrant pain (principal); K59.01 Slow transit constipation; Z90.710 Acquired absence of both cervix and uterus

== ENCOUNTER 2016-10-23 08:24 | Emergency (ER) | payer OTHER ==
[2016-10-23] MEDS ORDERED: HYDROmorphone HCL 2 MG TABLET PO ONE (09:10)
--- OUTSIDE RECORDS SUMMARY | 2016-10-23 09:10 | XMS REPORT | Continuity of Care Document ---
:1980 Author Organization [facility] [place] [address] Care Team Providers Name Role Phone Unavailable Primary Care Provider Unavailable Source Comments This disclosure is being made pursuant to the [employer] program and maynot contain all information available regarding this patient.[facility] Active Allergies and Adverse Reactions Not on [...]
--- OUTSIDE RECORDS SUMMARY | 2016-10-23 09:11 | XMS REPORT | Continuity of Care Document ---
:1980 Author Organization [facility] ([facility]) Address [address] [place] [address] Phone [phone] Care Team Providers Name Role Phone Joel Kearns Primary Care Provider [phone] Source Comments This disclosure is being made pursuant to the Care Everywhere program, applicable federal and state laws, and may not contain all informaitonavailable regarding this patient.[facility] ([facility]) Active Allergies and Adverse Reactions Allergen [...] Description 10/20/2016 Lab Requisition Pathology Lab Services, [facility] Social History Tobacco Use Types Packs/Day Years [...] Value Range Case Report Surgical Pathology Case: [id number] Authorizing Provider:[facility], [facility] Collected: 10/19/2016 09:00 AM Pathologist: Nickie Rain MD Received: 10/20/2016 08:40 AM Specimens: A) - Outside material, 14 slides, 2 blocks labeled [id number] B) - Outside material Diagnosis Uterus and [...] (p16 x 2 and negative controls) labeled [id number] with the corresponding pathology report. Outside immunostains show areas of increased but mos aic pattern p16 positivity in glands with tubal metaplasia.Microscopic examination otherwise performed and supports the diagnosis. Performed by:Faye Saravia MD, R4 Specimen Tissue - Outside material
[2016-10-23] MEDS ORDERED: HYDROmorphone HCL 2 MG TABLET ONE (09:15)
--- NOTE | 2016-10-23 09:17 | ERNOTE ---
ER Female HPI Stated Complaint: VAGINAL PAIN POST HYSTERECTOMY Presenting Symptoms: other Time Seen by Provider: 10/23/16 08:59 Source: patient Exam Limitations: no limitations Immunizations: IMMUNIZATION HX Immunizations Up to Date Yes History of Influenza Vaccine No Hx Pneumococcal Vaccination No Allergies/Adverse Reactions: Allergies lidocaine Allergy (Mild, Verified 10/23/16 08:39) swelling at site lithium Adverse Reaction (Severe, Verified 10/23/16 08:39) Other Suicidal ideations trazodone Adverse Reaction (Intermediate, Verified 10/23/16 08:39) PALPITATIONS adhesive tape Adverse Reaction (Mild, Verified 10/23/16 08:39) LATEX CLOTH TAPE RIPS SKIN OFF azithromycin [From Zithromax] Adverse Reaction (Mild, Verified 10/23/16 08:39) diarrhea, vomiting cephalexin monohydrate [From Keflex] Adverse Reaction (Mild, Verified 10/23/16 08:39) Vomiting clonazepam [From Klonopin] Adverse Reaction (Mild, Verified 10/23/16 08:39) CRYING latex Adverse Reaction (Mild, Verified 10/23/16 08:39) RASH milk Adverse Reaction (Mild, Verified 10/23/16 08:39) Diarrhea onion Adverse Reaction (Mild, Verified 10/23/16 08:39) RASH, GI UPSET povidone-iodine [From Betadine] Adverse Reaction (Mild, Verified 10/23/16 08:39) rash ropinirole HCl [From Requip] Adverse Reaction (Mild, Verified 10/23/16 08:39) Vomiting soap [From Betadine] Adverse Reaction (Mild, Verified 10/23/16 08:39) rash Home Medications: HOME MEDICATIONS Metoprolol Succinate [Toprol Xl] 400 mg PO DAILY 12/08/14 [Last Taken Unknown] Albuterol Sulfate [Proair Hfa] 1 - 2 puff IH Q4H PRN #1 inhaler 10/30/15 [Last Taken Unknown] Fluticasone Propionate [Flonase] 2 spray NS DAILY PRN 12/06/15 [Last Taken Unknown] Mometasone Furoate [Asmanex] 1 puff IH DAILY 12/06/15 [Last Taken Unknown] Omeprazole [Prilosec] 40 mg PO BID 12/06/15 [Last Taken Unknown] Ondansetron [Zofran Odt] 4 mg PO Q8H PRN 04/04/16 [Last Taken Unknown] Cyclobenzaprine HCl [Flexeril] 10 mg PO TID PRN #30 tab 09/14/16 [Last Taken Unknown] Naproxen [Naprosyn] 500 mg PO BID #60 tablet 09/14/16 [Last Taken Unknown] Methylprednisolone [Medrol Dosepak] 4 mg PO DAILY #21 tab.ds.pk 09/21/16 [Last Taken Unknown] Bisacodyl [Dulcolax] 5 mg PO BID #6 tab 10/21/16 [Last Taken Unknown] Docusate Sodium [Doc-Q-Lace] 100 mg PO BID 10/21/16 [Last Taken Unknown] Magnesium Citrate [Citrate of Magnesia] 300 ml PO TID #9 btl 10/21/16 [Last Taken Unknown] Metoclopramide HCl [Reglan] 5 mg PO ACHS #12 tab 10/21/16 [Last Taken Unknown] Oxycodone HCl/Acetaminophen [Percocet 10-325 mg Tablet] 7.5 mg PO PRN PRN [Last Taken Unknown] Sulindac 200 mg PO BID #6 tab 10/21/16 [Last Taken Unknown] Hydromorphone HCl [Dilaudid] 2 mg PO Q4H PRN #30 tablet 10/23/16 [Last Taken Unknown] - History of Present Illness Narrative: Patient had a vaginal hysterectomy at [facility] six days ago, she was discharged five days ago and states that she feels that the percocet is not enough to control the post op pain. She last took percocet at 04:00 but feels that is doesn't help. The pain is not getting worse then it was before, it only hurts in the area of the surgery. She denies any bleeding, no discharge, moving her bowel well since starting a laxative, no urinary complaints. She just wants stronger pain medication and has not gone to see her surgeon as she does not have a way to get up to [place] Date (Duration): 10/17/16 Timing: Present: constant Review of Systems - Review of Systems Constitutional: Present: recent illness Respiratory: Absent: shortness of breath Cardiology: Absent: chest pain Gastrointestinal/Abdominal: Present: See HPI, abdominal pain. Absent: nausea, vomiting Genitourinary: Present: See HPI. Absent: frequency, dysuria, discharge Neurological: Absent: headache - Patient's Past Medical History Patient History - Medical: Anxiety, Chronic Pain, Diabetes Type 2, Depression, GERD, Migraines, Seizures Patient History - Cardiac/Respiratory: No pertinent hx Patient History - Cancer: No Hx of Cancer Patient History - Surgical Procedures: Appendectomy, Cholecystectomy, , Hysterectomy, Tubal Ligation, T & A Patient History - Other: None - Family History mom Family History - Medical: History Unknown dad Family History - Medical: History Unknown Family History - Cardiac/Respiratory: No pertinent hx - Social History Living Situations: spouse Abuse History: No History of abuse Psych History: Hx of Anxiety, Hx of Depression Smoking Status: Current every day smoker Alcohol Use: none Drug Use: none - Immunizations Immunizations Up to Date: Yes Hx Pneumococcal Vaccination: No History of Influenza Vaccine: No Physical Exam - Physical Exam General Appearance: Present: wd/wn, alert, no apparent distress Respiratory: Present: no respiratory distress, normal breath sounds, lungs clear Cardiovascular/Chest: Present: regular rate, rhythm, no murmur Gastrointestinal/Abdominal: Present: normal bowel sounds, nondistended, soft, tenderness - suprapubic only Neurological Exam: Present: alert, oriented, normal mood/affect Skin Exam: Present: normal color, warm/dry ED Progress - Vital Signs Patient's Vital Signs:: I have reviewed the patient's vital signs. Vital Signs: Vital Signs 10/23/16 08:31 Temperature 36.8 C Pulse Rate 113 H Respiratory 18 Rate Blood Pressure 160/105 O2 Sat by Pulse 95 Oximetry - Progress/Reassessment Chief Complaint: Genitourinary Problem Departure Clinical Impression: Postoperative abdominal pain - Departure Disposition: Home self-care Condition: Good Instructions: Vaginal Hysterectomy, Care After [employer] Additional Instructions: call your surgeon for follow up if you need more pain medication Prescriptions: Hydromorphone HCl [Dilaudid] 2 mg PO Q4H PRN #30 tablet PRN Reason: Pain
[2016-10-23 09:22] VITALS: BP 188/120
== END 2016-10-23 09:25 | disposition home or self-care (01) ==
LOC: ER 08:24
DX: R10.2 Pelvic and perineal pain (principal); Z72.0 Tobacco use

== ENCOUNTER 2016-10-25 17:28 | Emergency (ER) | payer OTHER ==
[2016-10-25 17:36] VITALS: BP 149/117
[2016-10-25] MEDS ORDERED: KETOROLAC TROMETHAMINE 60 MG/2 ML VIAL IM ONE ×2 (18:01→18:06)
[2016-10-25] MEDS ORDERED: SILVER SULFADIAZINE 50 APPL JAR TP ONE ×2 (18:01→18:06)
--- OUTSIDE RECORDS SUMMARY | 2016-10-25 18:10 | XMS REPORT | Continuity of Care Document ---
:1980 Author Organization [facility] ([facility]) Address [address] [place] [address] Phone [phone] Care Team Providers Name Role Phone Joel Kearns Primary Care Provider [phone] Source Comments This disclosure is being made pursuant to the Care Everywhere program, applicable federal and state laws, and may not contain all informaitonavailable regarding this patient.[facility] ([facility]) Active Allergies and Adverse Reactions Allergen Noted [...] Value Range Case Report Surgical Pathology Case: [id number] Authorizing Provider:[facility], [facility] Collected: 10/19/2016 09:00 AM Pathologist: Nickie Rain MD Received: 10/20/2016 08:40 AM Specimens: A) - Outside material, 14 slides, 2 blocks labeled [id number] B) - Outside material Diagnosis Uterus and [...] (p16 x 2 and negative controls) labeled [id number] with the corresponding pathology report. Outside immunostains show areas of increased but mos aic pattern p16 positivity in glands with tubal metaplasia.Microscopic examination otherwise performed and supports the diagnosis. Performed by:Faye Saravia MD, R4 Specimen Tissue - Outside material
--- OUTSIDE RECORDS SUMMARY | 2016-10-25 18:10 | XMS REPORT | Continuity of Care Document ---
:1980 Author Organization [facility] [place] [address] Care Team Providers Name Role Phone Unavailable Primary Care Provider Unavailable Source Comments This disclosure is being made pursuant to the [employer] program and maynot contain all information available regarding this patient.[facility] Active Allergies and Adverse Reactions Not on [...]
--- NOTE | 2016-10-25 18:28 | ERNOTE ---
ER Burn HPI Date of Service: 10/25/16 Stated Complaint: HAND BURN Time Seen by Provider: 10/25/16 17:53 Source: patient Exam Limitations: no limitations Immunizations: IMMUNIZATION HX Immunizations Up to Date Yes History of Influenza Vaccine No Hx Pneumococcal Vaccination No Allergies/Adverse Reactions: Allergies lidocaine Allergy (Mild, Verified 10/25/16 17:36) swelling at site lithium Adverse Reaction (Severe, Verified 10/25/16 17:36) Other Suicidal ideations trazodone Adverse Reaction (Intermediate, Verified 10/25/16 17:36) PALPITATIONS adhesive tape Adverse Reaction (Mild, Verified 10/25/16 17:36) LATEX CLOTH TAPE RIPS SKIN OFF azithromycin [From Zithromax] Adverse Reaction (Mild, Verified 10/25/16 17:36) diarrhea, vomiting cephalexin monohydrate [From Keflex] Adverse Reaction (Mild, Verified 10/25/16 17:36) Vomiting clonazepam [From Klonopin] Adverse Reaction (Mild, Verified 10/25/16 17:36) CRYING latex Adverse Reaction (Mild, Verified 10/25/16 17:36) RASH milk Adverse Reaction (Mild, Verified 10/25/16 17:36) Diarrhea onion Adverse Reaction (Mild, Verified 10/25/16 17:36) RASH, GI UPSET povidone-iodine [From Betadine] Adverse Reaction (Mild, Verified 10/25/16 17:36) rash ropinirole HCl [From Requip] Adverse Reaction (Mild, Verified 10/25/16 17:36) Vomiting soap [From Betadine] Adverse Reaction (Mild, Verified 10/25/16 17:36) rash Home Medications: HOME MEDICATIONS Metoprolol Succinate [Toprol Xl] 400 mg PO DAILY 12/08/14 [Last Taken Unknown] Albuterol Sulfate [Proair Hfa] 1 - 2 puff IH Q4H PRN #1 inhaler 10/30/15 [Last Taken Unknown] Fluticasone Propionate [Flonase] 2 spray NS DAILY PRN 12/06/15 [Last Taken Unknown] Mometasone Furoate [Asmanex] 1 puff IH DAILY 12/06/15 [Last Taken Unknown] Omeprazole [Prilosec] 40 mg PO BID 12/06/15 [Last Taken Unknown] Ondansetron [Zofran Odt] 4 mg PO Q8H PRN 12/06/15 [Last Taken Unknown] Cyclobenzaprine HCl [Flexeril] 10 mg PO TID PRN #30 tab 09/14/16 [Last Taken Unknown] Naproxen [Naprosyn] 500 mg PO BID #60 tablet 09/14/16 [Last Taken Unknown] Methylprednisolone [Medrol Dosepak] 4 mg PO DAILY #21 tab.ds.pk 09/21/16 [Last Taken Unknown] Bisacodyl [Dulcolax] 5 mg PO BID #6 tab 10/21/16 [Last Taken Unknown] Docusate Sodium [Doc-Q-Lace] 100 mg PO BID 10/21/16 [Last Taken Unknown] Magnesium Citrate [Citrate of Magnesia] 300 ml PO TID #9 btl 10/21/16 [Last Taken Unknown] Metoclopramide HCl [Reglan] 5 mg PO ACHS #12 tab 10/21/16 [Last Taken Unknown] Oxycodone HCl/Acetaminophen [Percocet 10-325 mg Tablet] 7.5 mg PO PRN PRN [Last Taken Unknown] Sulindac 200 mg PO BID #6 tab 10/21/16 [Last Taken Unknown] Hydromorphone HCl [Dilaudid] 2 mg PO Q4H PRN #30 tablet 10/23/16 [Last Taken Unknown] Silver Sulfadiazine [Silvadene] 1 appl TP BID #85 gm 10/25/16 [Last Taken Unknown] - History of Present Illness Narrative: Pt. comes in with c/o R hand pain and jones after frying chicken and the grease splattering up and hitting her hand. Pt. denies any numbness, tingling, open wounds, SOB, NVD, weakness, dizziness, or other symptoms. Pt. denies any prehospital treatment, alleviating fctors, or aggravating factors. Review of Systems - Review of Systems Constitutional: Present: no symptoms reported EYE: Present: no symptoms reported ENT: Present: no symptoms reported Respiratory: Present: no symptoms reported. Absent: shortness of breath, cough , wheezing Cardiology: Present: no symptoms reported Gastrointestinal/Abdominal: Present: no symptoms reported. Absent: nausea, vomiting, diarrhea Genitourinary: Present: no symptoms reported Musculoskeletal: Present: no symptoms reported. Absent: back pain, joint pain Skin: Present: other - jones R dorsal hand Neurological: Present: no symptoms reported. Absent: headache, dizziness/light- headedness, numbness, tingling Endocrine: Present: no symptoms reported Hematologic/Lymphatic: Present: no symptoms reported All Other Systems: All systems neg except as marked - Patient's Past Medical History Patient History - Medical: Anxiety, Chronic Pain, Diabetes Type 2, Depression, GERD, Migraines, Seizures Patient History - Cardiac/Respiratory: No pertinent hx Patient History - Cancer: No Hx of Cancer Patient History - Surgical Procedures: Appendectomy, Cholecystectomy, , Hysterectomy, Tubal Ligation, T & A Patient History - Other: None - Family History mom Family History - Medical: History Unknown dad Family History - Medical: History Unknown Family History - Cardiac/Respiratory: No pertinent hx - Social History Living Situations: spouse Abuse History: No History of abuse Psych History: Hx of Anxiety, Hx of Depression Smoking Status: Current every day smoker Have you smoked in the past 12 months: Yes Alcohol Use: none Drug Use: none - Immunizations Immunizations Up to Date: Yes Hx Pneumococcal Vaccination: No History of Influenza Vaccine: No Physical Exam - Physical Exam General Appearance: Present: wd/wn, alert, no apparent distress Eye Exam: Normal inspection: bilateral, PERRL: bilateral, EOMI: bilateral Ears, Nose, Throat: Present: normal ENT inspection, hearing grossly normal, normal pharynx Neck: Present: normal inspection, nontender. Absent: lymphadenopathy (R), lymphadenopathy (L) Respiratory: Present: no respiratory distress, normal breath sounds, no accessory muscle use, chest nontender, lungs clear Cardiovascular/Chest: Present: regular rate, rhythm, no murmur, normal peripheral pulses Gastrointestinal/Abdominal: Present: normal bowel sounds, nontender, nondistended, soft Back Exam: Present: normal inspection, normal range of motion, no CVA tenderness , no vertebral tenderness Extremity Exam: Present: no edema, normal range of motion, other - pain and redness volar R hand from jones Neurological Exam: Present: alert, oriented, normal mood/affect, no motor/ sensory deficits, 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 Vital Signs: Vital Signs 10/25/16 17:33 Temperature 36.2 C L Pulse Rate 105 H Respiratory 12 Rate Blood Pressure 149/117 O2 Sat by Pulse 99 Oximetry - Progress/Reassessment Chief Complaint: Jones Departure Clinical Impression: 1st deg burn hand-mult Qualifiers: Encounter type: initial encounter Laterality: right Qualified Code(s): T23.191A - Burn of first degree of multiple sites of right wrist and hand, initial encounter - Departure Disposition: Home self-care Condition: Good Instructions: Burn Care, [id number] Additional Instructions: Please follow up with Dr Diego gallardo for wound check in 2-3 days. Please change dressings with silvadene and gauze daily may continue current pain medications for pain control. Referrals: Joel Meraz MD [Primary Care Provider] - Prescriptions: Silver Sulfadiazine [Silvadene] 1 appl TP BID #85 gm
== END 2016-10-25 18:34 | disposition home or self-care (01) ==
LOC: ER 17:28
PROC: 2W2EX4Z Dressing of Right Hand using Bandage (ICD-10-PCS; principal; 2016-10-25)
PROC: 2W2CX4Z Dressing of Right Lower Arm using Bandage (ICD-10-PCS; 2016-10-25)
DX: T23.191A Burn of first degree of multiple sites of right wrist and hand, initial encounter (principal); Z72.0 Tobacco use; X10.2XXA Contact with fats and cooking oils, initial encounter; Y93.G3 Activity, cooking and baking

== ENCOUNTER 2016-11-18 19:39 | Emergency (ER) | payer OTHER ==
--- OUTSIDE RECORDS SUMMARY | 2016-11-18 21:25 | XMS REPORT | Continuity of Care Document ---
:1980 Author Organization [employer] [place] [address] Care Team Providers Name Role Phone Unavailable Primary Care Provider Unavailable Source Comments This disclosure is being made pursuant to the [employer] program and maynot contain all information available regarding this patient.[employer] Active Allergies and Adverse Reactions Not on [...]
--- OUTSIDE RECORDS SUMMARY | 2016-11-18 21:25 | XMS REPORT | Continuity of Care Document ---
:1980 Author Organization [facility] ([facility]) Address [address] [place] [address] Phone [phone] Care Team Providers Name Role Phone Joel Kearns Primary Care Provider [phone] Source Comments This disclosure is being made pursuant to the Care Everywhere program, applicable federal and state laws, and may not contain all informaitonavailable regarding this patient.[facility] ([facility]) Active Allergies and Adverse Reactions Allergen Noted [...] Description 10/20/2016 Lab Requisition Pathology Lab Services, [facility] Social History Tobacco Use Types Packs/Day [...] Value Range Case Report Surgical Pathology Case: [id number] Authorizing Provider:[facility] Services, [facility] Collected: 10/19/2016 09:00 AM Pathologist: Nickie Rain MD Received: 10/20/2016 08:40 AM Specimens: A) - Outside material, 14 slides, 2 blocks labeled [id number] B) - Outside material Diagnosis Uterus and [...] (p16 x 2 and negative controls) labeled [id number] with the corresponding pathology report. Outside immunostains show areas of increased but mos aic pattern p16 positivity in glands with tubal metaplasia.Microscopic examination otherwise performed and supports the diagnosis. Performed by:Faye Saravia MD, R4 Specimen Tissue - Outside material
[2016-11-18] MEDS ORDERED: predniSONE 20 MG TABLET ONE (21:42)
[2016-11-18] MEDS ORDERED: predniSONE 20 MG TABLET PO ONE (21:44)
--- NOTE | 2016-11-18 21:45 | ERNOTE ---
Integumentary HPI - General Time Seen by Provider: 11/18/16 20:47 - Immun/Allergies/Home Medications Immunizations: IMMUNIZATION HX Immunizations Up to Date Yes History of Influenza Vaccine No Hx Pneumococcal Vaccination No Allergies/Adverse Reactions: Allergies Allergy/AdvReac Type Severity Reaction Status Date / Time lidocaine Allergy Mild swelling Verified 10/25/16 17:36 at site lithium AdvReac Severe Other Verified 10/25/16 17:36 trazodone AdvReac Intermediate PALPITATION Verified 10/25/16 17:36 S adhesive tape AdvReac Mild LATEX Verified 10/25/16 17:36 CLOTH TAPE RIPS SKIN OFF azithromycin [From Zithromax] AdvReac Mild diarrhea, Verified 10/25/16 17:36 vomiting cephalexin monohydrate AdvReac Mild Vomiting Verified 10/25/16 17:36 [From Keflex] clonazepam [From Klonopin] AdvReac Mild CRYING Verified 10/25/16 17:36 latex AdvReac Mild RASH Verified 10/25/16 17:36 milk AdvReac Mild Diarrhea Verified 10/25/16 17:36 onion AdvReac Mild RASH, GI Verified 10/25/16 17:36 UPSET povidone-iodine AdvReac Mild rash Verified 10/25/16 17:36 [From Betadine] ropinirole HCl [From Requip] AdvReac Mild Vomiting Verified 10/25/16 17:36 soap [From Betadine] AdvReac Mild rash Verified 10/25/16 17:36 Home Medications: HOME MEDICATIONS Metoprolol Succinate [Toprol Xl] 400 mg PO DAILY 12/08/14 [Last Taken Unknown] Albuterol Sulfate [Proair Hfa] 1 - 2 puff IH Q4H PRN #1 inhaler 10/30/15 [Last Taken Unknown] Fluticasone Propionate [Flonase] 2 spray NS DAILY PRN 12/06/15 [Last Taken Unknown] Mometasone Furoate [Asmanex] 1 puff IH DAILY 12/06/15 [Last Taken Unknown] Ondansetron [Zofran Odt] 4 mg PO Q8H PRN 12/06/15 [Last Taken Unknown] Cyclobenzaprine HCl [Flexeril] 10 mg PO TID PRN #30 tab 09/14/16 [Last Taken Unknown] Metoclopramide HCl [Reglan] 5 mg PO ACHS #12 tab 10/21/16 [Last Taken Unknown] Methylprednisolone [Medrol Dosepak] 1 mg PO DAILY #1 tab.ds.pk 11/18/16 [Last Taken Unknown] - Patient's Past Medical History Patient History - Medical: Anxiety, Chronic Pain, Diabetes Type 2, Depression, GERD, Migraines, Seizures Patient History - Cardiac/Respiratory: No pertinent hx Patient History - Cancer: No Hx of Cancer Patient History - Surgical Procedures: Appendectomy, Cholecystectomy, , Hysterectomy, Tubal Ligation, T & A Patient History - Other: None - Family History mom Family History - Medical: History Unknown dad Family History - Medical: History Unknown Family History - Cardiac/Respiratory: No pertinent hx - Social History Living Situations: spouse Abuse History: No History of abuse Psych History: Hx of Anxiety, Hx of Depression Smoking Status: Current every day smoker Patient requests Smoking Cessation Consult: No Initiate information on Smoking Cessation: No Alcohol Use: none Drug Use: none - Immunizations Immunizations Up to Date: Yes Hx Pneumococcal Vaccination: No History of Influenza Vaccine: No ED Progress - Vital Signs Vital Signs: Vital Signs 11/18/16 20:10 Temperature 36.8 C Pulse Rate 100 Respiratory 18 Rate Blood Pressure 134/94 O2 Sat by Pulse 99 Oximetry - Progress/Reassessment Chief Complaint: Insect Bite Departure Clinical Impression: Insect bite Qualifiers: Encounter type: initial encounter Qualified Code(s): W57.XXXA - Bitten or stung by nonvenomous insect and other nonvenomous arthropods, initial encounter - Departure Disposition: Home self-care Condition: Good Instructions: Insect Bite Referrals: Joel Meraz MD [Primary Care Provider] - Prescriptions: Methylprednisolone [Medrol Dosepak] 1 mg PO DAILY #1 tab.ds.pk
[2016-11-18 21:50] VITALS: BP 136/82
== END 2016-11-18 21:49 | disposition home or self-care (01) ==
LOC: ER 19:39
DX: S40.861A Insect bite (nonvenomous) of right upper arm, initial encounter (principal); F17.210 Nicotine dependence, cigarettes, uncomplicated; W57.XXXA Bitten or stung by nonvenomous insect and other nonvenomous arthropods, initial encounter

== ENCOUNTER 2017-01-09 19:32 | Emergency (ER) | payer OTHER ==
--- OUTSIDE RECORDS SUMMARY | 2017-01-09 20:37 | XMS REPORT | Continuity of Care Document ---
:1980 Author Organization [facility] [place] [address] Care Team Providers Name Role Phone Unavailable Primary Care Provider Unavailable Source Comments This disclosure is being made pursuant to the [employer] program and maynot contain all information available regarding this patient.[employer] [employer] Active Allergies and Adverse Reactions Not on [...]
--- OUTSIDE RECORDS SUMMARY | 2017-01-09 20:38 | XMS REPORT | Continuity of Care Document ---
:1980 Author Organization [facility] ([facility]) Address [address] [place] [address] Phone [phone] Care Team Providers Name Role Phone Joel Kearns Primary Care Provider [phone] Source Comments This disclosure is being made pursuant to the Care Everywhere program, applicable federal and state laws, and may not contain all informaitonavailable regarding this patient.[facility] ([facility]) Active Allergies and Adverse Reactions Allergen [...] Status ondansetron 4 mg 4mg every 8hours 11/26/2015 Active disintegrating tablet as needed by mouth SERTraline 50 mg tablet take 1 tablet (50 12/20/2015 Active mg) by oral route once daily traMADol 50 mg tablet take 2 tablets 11/26/2015 Active (100 mg) by oral route 4 times a day the same time as naproxen. ALPRAZolam 0.25 mg take 1 tablet 12/20/2015 Active tablet (0.25 mg) by oral route 3 times per day PRN for anxiety omeprazole 40 mg enteric take 1 capsule by 11/16/2015 Active coated capsule oral route 2 times a day SYRINGE-NEEDLE,INSULIN,0 AIMS EVERY 6 01/11/2016 Active .5 ML (AIMSCO INSULIN MONTHS. 01/11/16 SYRINGE NA ) ALBUTEROL SULFATE (BULK) 1-2 puffs every Active NA 4-6hours prn given in ER 10-30-15 divalproex 250 mg ER Take 500 mg by 09/27/2015 Active tablet 24 hour mouth daily. 1 by mouth at night with the sleeping pill, to block headache. atorvastatin 40 mg Take 40 mg by Active tablet mouth every evening. metoPROLol succinate 100 Take 300 mg by 01/11/2016 01/05/2017 mg XL tablet mouth daily. 3 by mouth at the same time once daily Active Problems Problem Noted Date Atypical chest [...] Description 10/20/2016 Lab Requisition Pathology Lab Services, [facility] Social History Tobacco Use Types Packs/Day Years [...] Value Range Case Report Surgical Pathology Case: [id number] Authorizing Provider:Lab Services, [facility] Collected: 10/19/2016 09:00 AM Pathologist: Nickie Rain MD Received: 10/20/2016 08:40 AM Specimens: A) - Outside material, 14 slides, 2 blocks labeled [id number] B) - Outside material Diagnosis Uterus and [...] (p16 x 2 and negative controls) labeled [id number] with the corresponding pathology report. Outside immunostains show areas of increased but mos aic pattern p16 positivity in glands with tubal metaplasia.Microscopic examination otherwise performed and supports the diagnosis. Performed by:Faye Saravia MD, R4 Specimen Tissue - Outside material
[2017-01-09] MEDS ORDERED: AMOXICILLIN TRIHYDRATE 250 MG CAPSULE PO ONE (20:39)
--- NOTE | 2017-01-09 20:42 | ERNOTE ---
Time Seen by Provider: 01/09/17 20:33 Stated Complaint: COUGH AND WHEEZING Presenting Symptoms:: cough, runny nose Immunizations: IMMUNIZATION HX Immunizations Up to Date Yes History of Influenza Vaccine No Hx Pneumococcal Vaccination No Allergies/Adverse Reactions: Allergies lidocaine Allergy (Mild, Verified 10/25/16 17:36) swelling at site lithium Adverse Reaction (Severe, Verified 10/25/16 17:36) Other Suicidal ideations trazodone Adverse Reaction (Intermediate, Verified 10/25/16 17:36) PALPITATIONS adhesive tape Adverse Reaction (Mild, Verified 10/25/16 17:36) LATEX CLOTH TAPE RIPS SKIN OFF azithromycin [From Zithromax] Adverse Reaction (Mild, Verified 10/25/16 17:36) diarrhea, vomiting cephalexin monohydrate [From Keflex] Adverse Reaction (Mild, Verified 10/25/16 17:36) Vomiting clonazepam [From Klonopin] Adverse Reaction (Mild, Verified 10/25/16 17:36) CRYING latex Adverse Reaction (Mild, Verified 10/25/16 17:36) RASH milk Adverse Reaction (Mild, Verified 10/25/16 17:36) Diarrhea onion Adverse Reaction (Mild, Verified 10/25/16 17:36) RASH, GI UPSET povidone-iodine [From Betadine] Adverse Reaction (Mild, Verified 10/25/16 17:36) rash ropinirole HCl [From Requip] Adverse Reaction (Mild, Verified 10/25/16 17:36) Vomiting soap [From Betadine] Adverse Reaction (Mild, Verified 10/25/16 17:36) rash Home Medications: HOME MEDICATIONS Metoprolol Succinate [Toprol Xl] 400 mg PO DAILY 12/08/14 [Last Taken Unknown] Albuterol Sulfate [Proair Hfa] 1 - 2 puff IH Q4H PRN #1 inhaler 10/30/15 [Last Taken Unknown] Fluticasone Propionate [Flonase] 2 spray NS DAILY PRN 12/06/15 [Last Taken Unknown] Mometasone Furoate [Asmanex] 1 puff IH DAILY 12/06/15 [Last Taken Unknown] Ondansetron [Zofran Odt] 4 mg PO Q8H PRN 12/06/15 [Last Taken Unknown] Cyclobenzaprine HCl [Flexeril] 10 mg PO TID PRN #30 tab 01/12/17 [Last Taken Unknown] Methylprednisolone [Medrol Dosepak] 1 mg PO DAILY #1 tab.ds.pk 11/18/16 [Last Taken Unknown] Amoxicillin 875 mg PO BID #20 tablet 01/09/17 [Last Taken Unknown] - History of Present Ilness Narrative: Earache started 3-4 days ago, continued with mild cough and congestion Timing: getting worse Severity: moderate Frequency/Possible Cause: Reports: no prior episodes Review of Systems - Review of Systems Constitutional: Present: recent illness, fever, diaphoresis, weakness EYE: Present: no symptoms reported ENT: Present: See HPI Respiratory: Present: See HPI Cardiology: Present: no symptoms reported Gastrointestinal/Abdominal: Present: no symptoms reported Genitourinary: Present: no symptoms reported Musculoskeletal: Present: no symptoms reported Skin: Present: no symptoms reported Neurological: Present: no symptoms reported Endocrine: Present: no symptoms reported Hematologic/Lymphatic: Present: no symptoms reported Psych: Present: no symptoms reported - Patient's Past Medical History Patient History - Medical: Anxiety, Chronic Pain, Diabetes Type 2, Depression, GERD, Migraines, Seizures Patient History - Cardiac/Respiratory: Asthma, Hypertension Patient History - Cancer: No Hx of Cancer Patient History - Surgical Procedures: Appendectomy, Cholecystectomy, , Hysterectomy, Tubal Ligation, T & A Patient History - Other: None - Family History mom Family History - Medical: History Unknown dad Family History - Medical: History Unknown Family History - Cardiac/Respiratory: No pertinent hx - Social History Living Situations: significant other Abuse History: No History of abuse Psych History: Hx of Anxiety, Hx of Depression Smoking Status: Current every day smoker Have you smoked in the past 12 months: Yes Alcohol Use: none Drug Use: none - Immunizations Immunizations Up to Date: Yes Hx Pneumococcal Vaccination: No History of Influenza Vaccine: No Physical Exam - Physical Exam General Appearance: Present: wd/wn, alert, no apparent distress Eye Exam: Normal inspection: bilateral, PERRL: bilateral Ears, Nose, Throat: Present: abnormal TM (L) - erythematous, bulging, purlence behind TM. Absent: pharyngeal erythema Neck: Present: normal inspection Respiratory: Present: no respiratory distress, normal breath sounds Cardiovascular/Chest: Present: regular rate, rhythm, no murmur Gastrointestinal/Abdominal: Present: normal bowel sounds Back Exam: Present: normal inspection Extremity Exam: Present: normal inspection, normal range of motion Neurological Exam: Present: alert, oriented, normal mood/affect Skin Exam: Present: normal color, warm/dry Lymphatic Exam: Present: no adenopathy ED Progress - Vital Signs Vital Signs: Vital Signs 01/09/17 19:39 Temperature 36.4 C L Pulse Rate 102 H Respiratory 16 Rate Blood Pressure 152/108 O2 Sat by Pulse 97 Oximetry - Progress/Reassessment Chief Complaint: Upper Respiratory Symptoms Departure - Departure Clinical Impression: Otitis media of left ear Qualifiers: Otitis media type: suppurative Chronicity: acute Recurrence: not specified as recurrent Spontaneous tympanic membrane rupture: without spontaneous rupture Qualified Code(s): H66.002 - Acute suppurative otitis media without spontaneous rupture of ear drum, left ear Disposition: Home self-care Condition: Good Instructions: Otitis Media, Adult, [id number] Referrals: Joel Meraz MD [Primary Care Provider] - Prescriptions: Amoxicillin 875 mg PO BID #20 tablet
[2017-01-09] MEDS ORDERED: AMOXICILLIN TRIHYDRATE 250 MG CAPSULE ONE (20:48)
[2017-01-09 21:40] VITALS: BP 146/72
== END 2017-01-09 20:51 | disposition home or self-care (01) ==
LOC: ER 19:32
DX: H66.002 Acute suppurative otitis media without spontaneous rupture of ear drum, left ear (principal); F17.210 Nicotine dependence, cigarettes, uncomplicated; I10 Essential (primary) hypertension; G89.29 Other chronic pain

== ENCOUNTER 2017-01-17 21:30 | Emergency (ER) | payer OTHER ==
[2017-01-17] MEDS ORDERED: KETOROLAC TROMETHAMINE 60 MG/2 ML VIAL IM ONE ×2 (22:06→22:09)
--- NOTE | 2017-01-17 22:12 | ERNOTE ---
Abdominal HPI - General Chief Complaint: Abdominal Pain Time Seen by Provider: 01/17/17 21:58 Source: patient Exam Limitations: no limitations - Immun/Allergies/Home Medications Immunizatons: IMMUNIZATION HX Immunizations Up to Date Yes History of Influenza Vaccine No Hx Pneumococcal Vaccination No Allergies/Adverse Reactions: Allergies lidocaine Allergy (Mild, Verified 01/17/17 21:40) swelling at site lithium Adverse Reaction (Severe, Verified 01/17/17 21:40) Other Suicidal ideations trazodone Adverse Reaction (Intermediate, Verified 01/17/17 21:40) PALPITATIONS adhesive tape Adverse Reaction (Mild, Verified 01/17/17 21:40) LATEX CLOTH TAPE RIPS SKIN OFF azithromycin [From Zithromax] Adverse Reaction (Mild, Verified 01/17/17 21:40) diarrhea, vomiting cephalexin monohydrate [From Keflex] Adverse Reaction (Mild, Verified 01/17/17 21:40) Vomiting clonazepam [From Klonopin] Adverse Reaction (Mild, Verified 01/17/17 21:40) CRYING latex Adverse Reaction (Mild, Verified 01/17/17 21:40) RASH milk Adverse Reaction (Mild, Verified 01/17/17 21:40) Diarrhea onion Adverse Reaction (Mild, Verified 01/17/17 21:40) RASH, GI UPSET povidone-iodine [From Betadine] Adverse Reaction (Mild, Verified 01/17/17 21:40) rash ropinirole HCl [From Requip] Adverse Reaction (Mild, Verified 01/17/17 21:40) Vomiting soap [From Betadine] Adverse Reaction (Mild, Verified 01/17/17 21:40) rash Home Medications: HOME MEDICATIONS Metoprolol Succinate [Toprol Xl] 400 mg PO DAILY 12/08/14 [Last Taken Unknown] Fluticasone Propionate [Flonase] 2 spray NS DAILY PRN 12/06/15 [Last Taken Unknown] Cyclobenzaprine HCl [Flexeril] 10 mg PO TID PRN #30 tab 09/14/16 [Last Taken Unknown] Budesonide/Formoterol Fumarate [Symbicort 160-4.5 Mcg Inhaler] 10.2 gm IH [Last Taken Unknown] Dexlansoprazole [Dexilant] 30 mg PO DAILY 01/17/17 [Last Taken Unknown] Levofloxacin [Levaquin] 500 mg PO DAILY 01/17/17 [Last Taken Unknown] Loratadine 10 mg PO DAILY 01/17/17 [Last Taken Unknown] Tiotropium [place] [Spiriva Respimat] 4 gm IH DAILY 01/17/17 [Last Taken Unknown ] Tramadol HCl [Rybix Odt] 100 mg PO TID 01/17/17 [Last Taken Unknown] - History of Present Illness Narrative: Pt has had RLQ pain since vaginal hysterectomy in October. She states has been getting "numbing shots" to help with her pain. She received one two weeks ago and one yesterday. She states it worked within 24-48 hours the first time but she is not any better today Timing: constant Quality: severe Modifying Factors - (Improves): Present: other - has not tried anything for the pain Prior Abdominal Problems: Present: similar symptoms Prior Treatment: Present: recently seen, treated by physician Review of Systems - Review of Systems Constitutional: Absent: recent illness EYE: Present: no symptoms reported ENT: Present: no symptoms reported Respiratory: Present: no symptoms reported Cardiology: Present: no symptoms reported Gastrointestinal/Abdominal: Absent: nausea, diarrhea Genitourinary: Present: no symptoms reported Musculoskeletal: Absent: back pain, muscle pain Skin: Absent: rash, lesions Neurological: Present: no symptoms reported Endocrine: Present: no symptoms reported Hematologic/Lymphatic: Present: no symptoms reported Psych: Present: no symptoms reported - Patient's Past Medical History Patient History - Medical: Anxiety, Chronic Pain, Diabetes Type 2, Depression, GERD, Migraines, Seizures Patient History - Cardiac/Respiratory: Asthma, Hypertension Patient History - Cancer: No Hx of Cancer Patient History - Surgical Procedures: Appendectomy, Cholecystectomy, , Hysterectomy, Tubal Ligation, T & A Patient History - Other: None LMP (females 10-50): hysterectomy - Family History mom Family History - Medical: History Unknown dad Family History - Medical: History Unknown Family History - Cardiac/Respiratory: No pertinent hx - Social History Living Situations: home Abuse History: No History of abuse Psych History: Hx of Anxiety, Hx of Depression Smoking Status: Current every day smoker Alcohol Use: none Drug Use: none - Immunizations Immunizations Up to Date: Yes Hx Pneumococcal Vaccination: No History of Influenza Vaccine: No Physical Exam - Physical Exam General Appearance: Present: wd/wn, alert, no apparent distress Eye Exam: Normal inspection: bilateral Neck: Present: normal inspection, nontender, supple Respiratory: Present: no respiratory distress, no accessory muscle use Gastrointestinal/Abdominal: Present: soft, tenderness - RLQ superficial Back Exam: Present: normal inspection, normal range of motion Extremity Exam: Present: normal inspection, normal range of motion Neurological Exam: Present: alert, oriented, normal mood/affect, no motor/ sensory deficits Skin Exam: Present: normal color, warm/dry, other - Pt shows 2 injection points on the RLQ of her abdomen stating this is where her OB has injected her. Both seem fresh, within the past few days, neither seems healed enough to be 2 weeks old. ED Progress - Vital Signs Vital Signs: Vital Signs 01/17/17 21:31 Temperature 36.8 C Pulse Rate 93 Respiratory 14 Rate Blood Pressure 130/89 O2 Sat by Pulse 96 Oximetry - Progress/Reassessment Chief Complaint: Abdominal Pain Departure - Departure Clinical Impression: Abdominal pain Qualifiers: Abdominal location: right lower quadrant Qualified Code(s): R10.31 - Right lower quadrant pain Disposition: Home Follow Up Needed Condition: Good Instructions: Abdominal Pain, Adult, [id number] Additional Instructions: Call your OB doctor in the morning if not improved. Referrals: Joel Meraz MD [Primary Care Provider] -
--- OUTSIDE RECORDS SUMMARY | 2017-01-17 22:14 | XMS REPORT | Continuity of Care Document ---
:1980 Author Organization [facility] ([facility]) Address [address] [place] [address] Phone [phone] Care Team Providers Name Role Phone Joel Kearns Primary Care Provider [phone] Source Comments This disclosure is being made pursuant to the Care Everywhere program, applicable federal and state laws, and may not contain all informaitonavailable regarding this patient.[facility] ([facility]) Active Allergies and Adverse Reactions Allergen [...] Description 10/20/2016 Lab Requisition Pathology Lab Services, [facility] Social History Tobacco Use Types Packs/Day Years [...] (#1) 04/03/2016 Results from Last 3 Months Not on file
[2017-01-17 22:54] VITALS: BP 141/95
== END 2017-01-17 22:20 | disposition home or self-care (01) ==
LOC: ER 21:30
DX: R10.31 Right lower quadrant pain (principal); F17.200 Nicotine dependence, unspecified, uncomplicated; I10 Essential (primary) hypertension; J45.909 Unspecified asthma, uncomplicated

== ENCOUNTER 2017-02-07 19:10 | Emergency (ER) | payer OTHER ==
[2017-02-07] MEDS ORDERED: KETOROLAC TROMETHAMINE 60 MG/2 ML VIAL IM ONE ×2 (19:26→19:29)
--- NOTE | 2017-02-07 19:46 | ERNOTE ---
ENT HPI Date of Service: 02/07/17 Presenting Symptoms: dental pain Time Seen by Provider: 02/07/17 19:26 Source: patient Exam Limitations: no limitations - Immun/Allergies/Home Medications Immunizations: IMMUNIZATION HX Immunizations Up to Date Yes History of Influenza Vaccine No Hx Pneumococcal Vaccination No Allergies/Adverse Reactions: Allergies Allergy/AdvReac Type Severity Reaction Status Date / Time lidocaine Allergy Mild swelling Verified 01/17/17 21:40 at site lithium AdvReac Severe Other Verified 01/17/17 21:40 trazodone AdvReac Intermediate PALPITATION Verified 01/17/17 21:40 S adhesive tape AdvReac Mild LATEX Verified 01/17/17 21:40 CLOTH TAPE RIPS SKIN OFF azithromycin [From Zithromax] AdvReac Mild diarrhea, Verified 01/17/17 21:40 vomiting cephalexin monohydrate AdvReac Mild Vomiting Verified 01/17/17 21:40 [From Keflex] clonazepam [From Klonopin] AdvReac Mild CRYING Verified 01/17/17 21:40 latex AdvReac Mild RASH Verified 01/17/17 21:40 milk AdvReac Mild Diarrhea Verified 01/17/17 21:40 onion AdvReac Mild RASH, GI Verified 01/17/17 21:40 UPSET povidone-iodine AdvReac Mild rash Verified 01/17/17 21:40 [From Betadine] ropinirole HCl [From Requip] AdvReac Mild Vomiting Verified 01/17/17 21:40 soap [From Betadine] AdvReac Mild rash Verified 01/17/17 21:40 Home Medications: HOME MEDICATIONS Metoprolol Succinate [Toprol Xl] 400 mg PO DAILY 12/08/14 [Last Taken Unknown] Fluticasone Propionate [Flonase] 2 spray NS DAILY PRN 12/06/15 [Last Taken Unknown] Cyclobenzaprine HCl [Flexeril] 10 mg PO TID PRN #30 tab 09/14/16 [Last Taken Unknown] Budesonide/Formoterol Fumarate [Symbicort 160-4.5 Mcg Inhaler] 10.2 gm IH [Last Taken Unknown] Dexlansoprazole [Dexilant] 30 mg PO DAILY 01/17/17 [Last Taken Unknown] Loratadine 10 mg PO DAILY 01/17/17 [Last Taken Unknown] Tiotropium [place] [Spiriva Respimat] 4 gm IH DAILY 01/17/17 [Last Taken Unknown ] Tramadol HCl [Rybix Odt] 100 mg PO TID 01/17/17 [Last Taken Unknown] - History of Present Illness Narrative: patient on cell phone talking to her . she states she is here for tooth pain. patient states that she has dental pain on her upper right jaw area and that she has an appointment with her dental surgeon on Sunday to have her teeth fixed. Patient states she is taking tramadol for pain and it is not helping and that her doctor told her to come to the ER for narcotic prescription. She does not have a current order for tramadol. Date (Duration): 02/07/17 Severity: Present: moderate ENT Location: Present: dental Prearrival Treatment: Present: no prearrival treatment, prescription meds - ultram but not her prescription. Absent: over the counter meds Modifying Factors - Improves: Reports: medication Modifying Factors - Worsens: Reports: nothing Associated Symptoms - ENT: Reports: denies symptoms. Denies: fever, malaise, poor fluid intake, poor solid intake, cough, voice change, sore throat, drooling , nasal congestion/drainage, jaw swelling, change in hearing, ear drainage, headache Review of Systems - Review of Systems Constitutional: Present: no symptoms reported EYE: Present: no symptoms reported ENT: Present: See HPI Respiratory: Present: no symptoms reported Cardiology: Present: no symptoms reported Gastrointestinal/Abdominal: Present: no symptoms reported Genitourinary: Present: no symptoms reported Musculoskeletal: Present: no symptoms reported Skin: Present: no symptoms reported Neurological: Present: no symptoms reported Endocrine: Present: no symptoms reported Hematologic/Lymphatic: Present: no symptoms reported Psych: Present: no symptoms reported - Patient's Past Medical History Patient History - Medical: Anxiety, Chronic Pain, Diabetes Type 2, Depression, GERD, Migraines, Seizures Patient History - Cardiac/Respiratory: Asthma, COPD, Hypertension Patient History - Cancer: No Hx of Cancer Patient History - Surgical Procedures: Appendectomy, Cholecystectomy, , Hysterectomy, Tubal Ligation, T & A Patient History - Other: None LMP (females 10-50): other - Family History mom Family History - Medical: History Unknown dad Family History - Medical: History Unknown Family History - Cardiac/Respiratory: No pertinent hx - Social History Living Situations: significant other Abuse History: No History of abuse Psych History: Hx of Anxiety, Hx of Depression Smoking Status: Current every day smoker Have you smoked in the past 12 months: Yes Do you dip or chew tobacco: No Alcohol Use: none Drug Use: none - Immunizations Immunizations Up to Date: Yes Hx Pneumococcal Vaccination: No History of Influenza Vaccine: No Physical Exam - Physical Exam Narrative: patient talking on her phone upon this practitioner entering the room. stops talking on the phone and says she needs pain medication because the tramadol that she is taking is not working and Dr. Vidal stated to her that she should come here for a pain script. patient does not have a current script for tramadol, says she is taking someone elses. Patients exam: several dental carries observed. no facial swelling observed or lymphadenopathy. patient denies fever and is just asking for pain medication. General Appearance: Present: alert, no apparent distress Eye Exam: Normal inspection: bilateral Ears, Nose, Throat: Present: normal ENT inspection, normal pharynx, other - dental carries Neck: Present: normal inspection, nontender, full range of motion. Absent: lymphadenopathy (R), lymphadenopathy (L) Respiratory: Present: no respiratory distress, normal breath sounds, no accessory muscle use, chest nontender, lungs clear Cardiovascular/Chest: Present: regular rate, rhythm, no murmur, normal peripheral pulses Gastrointestinal/Abdominal: Present: normal bowel sounds, soft Back Exam: Present: normal inspection, normal range of motion, no vertebral tenderness Extremity Exam: Present: normal inspection, normal range of motion Neurological Exam: Present: alert, oriented, normal mood/affect, no motor/ sensory deficits Skin Exam: Present: normal color, warm/dry Lymphatic Exam: Present: no adenopathy ED Progress - Vital Signs Patient's Vital Signs:: I have reviewed the patient's vital signs. Vital Signs: Vital Signs 02/07/17 19:14 Temperature 36.7 C Pulse Rate 102 H Respiratory 16 Rate Blood Pressure 146/96 O2 Sat by Pulse 99 Oximetry - Progress/Reassessment Chief Complaint: Dental Problem Progress:: Improved Plan - Plan Plan: Patient has an appointment with an oral surgeon on Sunday to have her teeth fixed. Departure Clinical Impression: Tooth pain - Departure Disposition: Home Follow Up Needed Condition: Stable Instructions: Personal Hygiene, Dental Care and Dentist Visits, Dental Caries, Diet and Dental Disease, Preventive Dental Care, Adult Additional Instructions: Continue any previous medications prescribed to you at this time. She may take [id number] pain medications such as Tylenol or ibuprofen as needed for pain. May return to the emergency room if symptoms persist or unable to be controlled with [id number] pain medication. Make sure you follow up with her dentist on Sunday related to her appointment. Referrals: Joel Meraz MD [Primary Care Provider] -
--- OUTSIDE RECORDS SUMMARY | 2017-02-07 19:46 | XMS REPORT | Continuity of Care Document ---
:1980 Author Organization [facility] ([facility]) Address [address] [place] [address] Phone [phone] Care Team Providers Name Role Phone Joel Kearns Primary Care Provider [phone] Source Comments This disclosure is being made pursuant to the Care Everywhere program, applicable federal and state laws, and may not contain all informaitonavailable regarding this patient.[facility] ([facility]) Active Allergies and Adverse Reactions Allergen [...] same time as naproxen. ALPRAZolam 0.25 mg tablet take 1 tablet (0.25 12/20/2015 Active mg) by oral route 3 times per day PRN for anxiety omeprazole 40 mg enteric take 1 capsule by 11/16/2015 Active coated capsule oral route 2 times a day SYRINGE-NEEDLE,INSULIN,0. AIMS EVERY 6 01/11/2016 Active 5 ML (AIMSCO INSULIN MONTHS. 01/11/16 SYRINGE NA ) ALBUTEROL SULFATE (BULK) 1-2 puffs every Active NA 4-6hours prn given in ER 10-30-15 divalproex 250 mg ER Take 500 mg by 09/27/2015 Active tablet 24 hour mouth daily. 1 by mouth at night with the sleeping pill, to block headache. atorvastatin 40 mg tablet Take 40 mg by mouth Active every evening. Active Problems Problem Noted Date [...] symptom associated with female genital organs 07/30/20062015 Social History Tobacco Use Types Packs/Day Years [...]
--- OUTSIDE RECORDS SUMMARY | 2017-02-07 19:46 | XMS REPORT | Continuity of Care Document ---
:1980 Author Organization [facility] [place] [address] Care Team Providers Name Role Phone Unavailable Primary Care Provider Unavailable Source Comments This disclosure is being made pursuant to the [employer] program and maynot contain all information available regarding this patient.[facility] Active Allergies and Adverse Reactions Not on [...]
[2017-02-07 19:52] VITALS: BP 138/82
== END 2017-02-07 19:50 | disposition home or self-care (01) ==
LOC: ER 19:10
DX: K08.89 Other specified disorders of teeth and supporting structures (principal); Z72.0 Tobacco use

== ENCOUNTER 2017-02-10 20:37 | Emergency (ER) | payer OTHER ==
[2017-02-10] MEDS ORDERED: ONDANSETRON 4 MG TAB.RAPDIS PO ONE (21:14)
[2017-02-10] MEDS ORDERED: KETOROLAC TROMETHAMINE 60 MG/2 ML VIAL IM ONE ×2 (21:14→21:15)
[2017-02-10] MEDS ORDERED: ONDANSETRON 4 MG TAB.RAPDIS ONE (21:15)
--- OUTSIDE RECORDS SUMMARY | 2017-02-10 21:22 | XMS REPORT | Continuity of Care Document ---
:1980 Author Organization [facility] ([facility]) Address [address] [place] [address] Phone [phone] Care Team Providers Name Role Phone Joel Kearns Primary Care Provider [phone] Source Comments This disclosure is being made pursuant to the Care Everywhere program, applicable federal and state laws, and may not contain all informaitonavailable regarding this patient.[facility] ([facility]) Active Allergies and Adverse Reactions Allergen Noted [...]
--- OUTSIDE RECORDS SUMMARY | 2017-02-10 21:22 | XMS REPORT | Continuity of Care Document ---
:1980 Author Organization [facility] [place] [address] Care Team Providers Name Role Phone Unavailable Primary Care Provider Unavailable Source Comments This disclosure is being made pursuant to the [employer] program and maynot contain all information available regarding this patient.[facility] Active Allergies and Adverse Reactions Not on [...]
--- NOTE | 2017-02-10 21:38 | ERNOTE ---
Headache ER HPI - Narrative Date of Service: 02/10/17 - General Presenting Symptoms: "migraine" Time Seen by Provider: 02/10/17 21:00 Source: patient Exam Limitations: no limitations - Immun/Allergies/Home Medications Immunizations: IMMUNIZATION HX Immunizations Up to Date Yes History of Influenza Vaccine No Hx Pneumococcal Vaccination No Allergies/Adverse Reactions: Allergies lidocaine Allergy (Mild, Verified 02/10/17 20:46) swelling at site lithium Adverse Reaction (Severe, Verified 02/10/17 20:46) Other Suicidal ideations trazodone Adverse Reaction (Intermediate, Verified 02/10/17 20:46) PALPITATIONS adhesive tape Adverse Reaction (Mild, Verified 02/10/17 20:46) LATEX CLOTH TAPE RIPS SKIN OFF azithromycin [From Zithromax] Adverse Reaction (Mild, Verified 02/10/17 20:46) diarrhea, vomiting cephalexin monohydrate [From Keflex] Adverse Reaction (Mild, Verified 02/10/17 20:46) Vomiting clonazepam [From Klonopin] Adverse Reaction (Mild, Verified 02/10/17 20:46) CRYING latex Adverse Reaction (Mild, Verified 02/10/17 20:46) RASH milk Adverse Reaction (Mild, Verified 02/10/17 20:46) Diarrhea onion Adverse Reaction (Mild, Verified 02/10/17 20:46) RASH, GI UPSET povidone-iodine [From Betadine] Adverse Reaction (Mild, Verified 02/10/17 20:46) rash ropinirole HCl [From Requip] Adverse Reaction (Mild, Verified 02/10/17 20:46) Vomiting soap [From Betadine] Adverse Reaction (Mild, Verified 02/10/17 20:46) rash Home Medications: HOME MEDICATIONS Metoprolol Succinate [Toprol Xl] 400 mg PO DAILY 12/08/14 [Last Taken Unknown] Fluticasone Propionate [Flonase] 2 spray NS DAILY PRN 12/06/15 [Last Taken Unknown] Cyclobenzaprine HCl [Flexeril] 10 mg PO TID PRN #30 tab 09/14/16 [Last Taken Unknown] Budesonide/Formoterol Fumarate [Symbicort 160-4.5 Mcg Inhaler] 10.2 gm IH DAILY 01/17/17 [Last Taken Unknown] Dexlansoprazole [Dexilant] 30 mg PO DAILY 01/17/17 [Last Taken Unknown] Loratadine 10 mg PO DAILY 01/17/17 [Last Taken Unknown] Tiotropium [place] [Spiriva Respimat] 4 gm IH DAILY 01/17/17 [Last Taken Unknown ] Tramadol HCl [Rybix Odt] 100 mg PO TID 01/17/17 [Last Taken Unknown] Ondansetron [Zofran Odt] 4 mg PO Q6H PRN #20 tab 02/10/17 [Last Taken Unknown] - History of Present Illness Narrative: 36 year old female presenting to the ER for migraine most likely related to her dental pain that she was seen for yesterday. states she woke up with the DAILY this morning. stats she does have a dental apt sunday to have tooth pulled or surgically removed Date (Duration): 02/10/17 Timing of Headache: abrupt Context Headache: Present: new onset Quality: Present: throbbing Severity Maximum: Present: moderate Severity-Currently: Present: mild Headache frequency: Present: frequent headaches, similar to previous headache Modifying Factors - (Worsens): Reports: movement, exposure to light Associated Symptoms: Reports: nausea, facial pain. Denies: fever/chills, nasal congestion, numbness/tingling, loss of consciousness Exacerbated by:: Reports: light, noise, movement Prior Treament: Reports: recently seen, similar symptoms before, currently on antibiotics Review of Systems - Review of Systems Constitutional: Present: See HPI EYE: Present: see HPI ENT: Present: See HPI Respiratory: Present: no symptoms reported Cardiology: Present: no symptoms reported Gastrointestinal/Abdominal: Present: no symptoms reported Genitourinary: Present: no symptoms reported Musculoskeletal: Present: no symptoms reported Skin: Present: no symptoms reported Neurological: Present: See HPI Endocrine: Present: no symptoms reported Hematologic/Lymphatic: Present: no symptoms reported Psych: Present: no symptoms reported All Other Systems: All systems neg except as marked - Patient's Past Medical History Patient History - Medical: Anxiety, Chronic Pain, Diabetes Type 2, Depression, GERD, Migraines, Seizures Patient History - Cardiac/Respiratory: Asthma, COPD, Hypertension Patient History - Cancer: No Hx of Cancer Patient History - Surgical Procedures: Appendectomy, Cholecystectomy, , Hysterectomy, Tubal Ligation, T & A Patient History - Other: None - Family History mom Family History - Medical: History Unknown dad Family History - Medical: History Unknown Family History - Cardiac/Respiratory: No pertinent hx - Social History Living Situations: significant other Abuse History: No History of abuse Psych History: Hx of Anxiety, Hx of Depression Smoking Status: Current every day smoker Alcohol Use: none Drug Use: none - Immunizations Immunizations Up to Date: Yes Hx Pneumococcal Vaccination: No History of Influenza Vaccine: No Physical Exam - Physical Exam Narrative: patient c/o a migraine like DAILY, light sensitive, right side of her head and neck. General Appearance: Present: wd/wn, alert, mild distress Eye Exam: Normal inspection: bilateral Ears, Nose, Throat: Present: normal except - - dental carries Neck: Present: normal inspection, full range of motion Respiratory: Present: no respiratory distress, normal breath sounds, lungs clear Cardiovascular/Chest: Present: regular rate, rhythm, no murmur, normal peripheral pulses Gastrointestinal/Abdominal: Present: normal bowel sounds, nontender, soft Back Exam: Present: normal inspection, normal range of motion, no CVA tenderness Extremity Exam: Present: normal inspection, no edema Neurological Exam: Present: alert, oriented, normal mood/affect, no motor/ sensory deficits, production analyst II-XII nml as tested, normal cerebellar test. Absent: facial droop, motor weakness Skin Exam: Present: normal color, warm/dry Lymphatic Exam: Present: no adenopathy ED Progress - Vital Signs Patient's Vital Signs:: I have reviewed the patient's vital signs. Vital Signs: Vital Signs 02/10/17 20:40 Temperature 36.3 C L Pulse Rate 92 Respiratory 18 Rate Blood Pressure 126/98 O2 Sat by Pulse 99 Oximetry - Progress/Reassessment Chief Complaint: Headache Progress:: Improved Departure Clinical Impression: Migraine headache Qualifiers: Migraine type: unspecified Status migrainosus presence: without status migrainosus Intractability: not intractable Qualified Code(s): G43.909 - Migraine, unspecified, not intractable, without status migrainosus - Departure Disposition: Home Follow Up Needed Condition: Stable Instructions: Recurrent Migraine Headache, [id number] Additional Instructions: continue any previous home medication as directed. follow up with your PCP in the next few days. Return to the emergency room symptoms returned or unable to be controlled with medication. Referrals: Joel Meraz MD [Primary Care Provider] - Prescriptions: Ondansetron [Zofran Odt] 4 mg PO Q6H PRN #20 tab PRN Reason: Nausea
[2017-02-11 02:17] VITALS: BP 132/96
== END 2017-02-10 21:39 | disposition home or self-care (01) ==
LOC: ER 20:37
DX: G43.909 Migraine, unspecified, not intractable, without status migrainosus (principal); G89.29 Other chronic pain; E11.9 Type 2 diabetes mellitus without complications; K21.9 Gastro-esophageal reflux disease without esophagitis; J44.9 Chronic obstructive pulmonary disease, unspecified; I10 Essential (primary) hypertension; Z72.0 Tobacco use

== ENCOUNTER 2017-02-21 17:29 | Emergency (ER) | payer OTHER ==
--- OUTSIDE RECORDS SUMMARY | 2017-02-21 18:06 | XMS REPORT | Continuity of Care Document ---
:1980 Author Organization [facility] [place] [address] Care Team Providers Name Role Phone Unavailable Primary Care Provider Unavailable Source Comments This disclosure is being made pursuant to the [employer] program and maynot contain all information available regarding this patient.[facility] Active Allergies and Adverse Reactions Not on [...]
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
[2017-02-21] MEDS ORDERED: NAPROXEN SODIUM 550 MG TABLET ONE (18:42)
[2017-02-21] MEDS ORDERED: NAPROXEN SODIUM 550 MG TABLET PO ONE (18:42)
[2017-02-21 20:09] VITALS: BP 148/107
== END 2017-02-21 19:15 | disposition home or self-care (01) ==
LOC: ER 17:29
DX: S40.021A Contusion of right upper arm, initial encounter (principal); Y04.8XXA Assault by other bodily force, initial encounter; F17.210 Nicotine dependence, cigarettes, uncomplicated

== ENCOUNTER 2017-05-02 16:31 | Emergency (ER) | payer OTHER ==
[2017-05-02 16:36] VITALS: BP 121/56
[2017-05-02] MEDS ORDERED: diphenhydrAMINE HCL 50 MG/ML VIAL IM ONE (16:37)
[2017-05-02] MEDS ORDERED: METHYLPREDNISOLONE ACETATE 80 MG/ML VIAL IM ONE (16:37)
[2017-05-02] MEDS ORDERED: KETOROLAC TROMETHAMINE 60 MG/2 ML VIAL IM ONE ×2 (16:38→16:51)
[2017-05-02] MEDS ORDERED: diphenhydrAMINE HCL 50 MG/ML VIAL ONE (16:48)
[2017-05-02] MEDS ORDERED: METHYLPREDNISOLONE ACETATE 80 MG/ML VIAL ONE (16:48)
--- NOTE | 2017-05-02 16:49 | ERNOTE ---
Integumentary HPI - Narrative Date of Service: 05/02/17 - General Presenting Symptoms: other - bee sting Time Seen by Provider: 05/02/17 16:34 Source: patient Exam Limitations: no limitations - Immun/Allergies/Home Medications Immunizations: IMMUNIZATION HX Immunizations Up to Date Yes History of Influenza Vaccine No Hx Pneumococcal Vaccination No Allergies/Adverse Reactions: Allergies Allergy/AdvReac Type Severity Reaction Status Date / Time lidocaine Allergy Mild swelling Verified 05/02/17 16:36 at site lithium AdvReac Severe Other Verified 05/02/17 16:36 trazodone AdvReac Intermediate PALPITATION Verified 05/02/17 16:36 S adhesive tape AdvReac Mild LATEX Verified 05/02/17 16:36 CLOTH TAPE RIPS SKIN OFF azithromycin [From Zithromax] AdvReac Mild diarrhea, Verified 05/02/17 16:36 vomiting cephalexin monohydrate AdvReac Mild Vomiting Verified 05/02/17 16:36 [From Keflex] clonazepam [From Klonopin] AdvReac Mild CRYING Verified 05/02/17 16:36 latex AdvReac Mild RASH Verified 05/02/17 16:36 milk AdvReac Mild Diarrhea Verified 05/02/17 16:36 onion AdvReac Mild RASH, GI Verified 05/02/17 16:36 UPSET povidone-iodine AdvReac Mild rash Verified 05/02/17 16:36 [From Betadine] ropinirole HCl [From Requip] AdvReac Mild Vomiting Verified 05/02/17 16:36 soap [From Betadine] AdvReac Mild rash Verified 05/02/17 16:36 Home Medications: HOME MEDICATIONS Metoprolol Succinate [Toprol Xl] 400 mg PO DAILY 12/08/14 [Last Taken Unknown] Fluticasone Propionate [Flonase] 2 spray NS DAILY PRN 12/06/15 [Last Taken Unknown] Cyclobenzaprine HCl [Flexeril] 10 mg PO TID PRN #30 tab 09/14/16 [Last Taken Unknown] Budesonide/Formoterol Fumarate [Symbicort 160-4.5 Mcg Inhaler] 10.2 gm IH DAILY 01/17/17 [Last Taken Unknown] Dexlansoprazole [Dexilant] 30 mg PO DAILY 01/17/17 [Last Taken Unknown] Loratadine 10 mg PO DAILY 01/17/17 [Last Taken Unknown] Tiotropium [place] [Spiriva Respimat] 4 gm IH DAILY 01/17/17 [Last Taken Unknown ] Tramadol HCl [Rybix Odt] 100 mg PO TID 01/17/17 [Last Taken Unknown] Ondansetron [Zofran Odt] 4 mg PO Q6H PRN #20 tab 02/10/17 [Last Taken Unknown] Naproxen [Naprosyn] 500 mg PO BID #60 tablet 02/21/17 [Last Taken Unknown] predniSONE [Prednisone] 3 tab PO DAILY #9 tab 05/02/17 [Last Taken Unknown] - History of Present Illness Narrative: Pt. comes in with c/o medial foot bee sting while walking through lawn just prior to arrival. Pt. denies any SOB, CP, NVD, but does state that she always has allergic reactions to bee stings. Pt. denies any prehospital treatment. Review of Systems - Review of Systems Constitutional: Present: no symptoms reported. Absent: recent illness, fever, chills, weakness, fatigue, malaise EYE: Present: no symptoms reported ENT: Present: no symptoms reported Respiratory: Present: no symptoms reported. Absent: shortness of breath, cough , wheezing Cardiology: Present: no symptoms reported. Absent: chest pain, palpitations, edema Gastrointestinal/Abdominal: Present: no symptoms reported. Absent: nausea, vomiting, diarrhea Genitourinary: Present: no symptoms reported Musculoskeletal: Present: no symptoms reported. Absent: back pain, joint pain Skin: Present: change in color - redness R medial foot after bee sting Neurological: Present: no symptoms reported. Absent: headache, dizziness/light- headedness, numbness, tingling All Other Systems: All systems neg except as marked - Patient's Past Medical History Patient History - Medical: Anxiety, Chronic Pain, Diabetes Type 2, Depression, GERD, Migraines, Seizures Patient History - Cardiac/Respiratory: Asthma, COPD, Hypertension Patient History - Cancer: No Hx of Cancer Patient History - Surgical Procedures: Appendectomy, Cholecystectomy, , Hysterectomy, Tubal Ligation, T & A Patient History - Other: None LMP (females 10-50): other - Family History mom Family History - Medical: History Unknown dad Family History - Medical: History Unknown Family History - Cardiac/Respiratory: No pertinent hx - Social History Living Situations: home Abuse History: No History of abuse Psych History: Hx of Anxiety, Hx of Depression Alcohol Use: none Drug Use: none - Immunizations Immunizations Up to Date: Yes Hx Pneumococcal Vaccination: No History of Influenza Vaccine: No Physical Exam - Physical Exam General Appearance: Present: wd/wn, alert, no apparent distress Head Exam: Present: normal inspection, no evidence of injury Eye Exam: Normal inspection: bilateral, PERRL: bilateral, EOMI: bilateral Ears, Nose, Throat: Present: normal ENT inspection, normal pharynx Neck: Present: normal inspection, nontender Respiratory: Present: no respiratory distress, normal breath sounds, no accessory muscle use, chest nontender, lungs clear Cardiovascular/Chest: Present: regular rate, rhythm, no murmur, normal peripheral pulses Back Exam: Present: normal inspection Extremity Exam: Present: normal range of motion, pedal edema - medial from bee sting mild no pitting Neurological Exam: Present: alert, oriented, normal mood/affect, no motor/ sensory deficits Skin Exam: Present: normal color, warm/dry, other - bee sting distal medial L foot with mild edema and erythema no stinger present. ED Progress - Vital Signs Patient's Vital Signs:: I have reviewed the patient's vital signs. Vital Signs: Vital Signs 05/02/17 05/02/17 16:34 16:37 Temperature 36.5 C Pulse Rate 88 Respiratory 17 16 Rate Blood Pressure 121/56 121/56 O2 Sat by Pulse 98 98 Oximetry - Progress/Reassessment Chief Complaint: Insect Bite Departure Clinical Impression: Bee sting allergy - Departure Disposition: Home self-care Condition: Good Instructions: Bee, Wasp, or Hornet Sting Additional Instructions: Please follow up with primary provider in 2-3 days if needed. please take benadryl 25 mg every 6 hours. Referrals: Joel Meraz MD [Primary Care Provider] - Prescriptions: predniSONE [Prednisone] 3 tab PO DAILY #9 tab
== END 2017-05-02 17:44 | disposition home or self-care (01) ==
LOC: ER 16:31
DX: Z91.030 Bee allergy status (principal); G89.29 Other chronic pain; E11.9 Type 2 diabetes mellitus without complications; K21.9 Gastro-esophageal reflux disease without esophagitis; J44.9 Chronic obstructive pulmonary disease, unspecified; I10 Essential (primary) hypertension; F41.8 Other specified anxiety disorders

== ENCOUNTER 2017-06-14 15:35 | Emergency (ER) | payer OTHER ==
[2017-06-14 15:55] VITALS: BP 144/91
--- NOTE | 2017-06-14 16:03 | ERNOTE ---
Trauma/Assault HPI - General Stated Complaint: FALL Time Seen by Provider: 06/14/17 15:46 Source: patient Exam Limitations: no limitations - Immun/Allergies/Home Medications Immunizations: IMMUNIZATION HX Immunizations Up to Date Yes History of Influenza Vaccine No Hx Pneumococcal Vaccination No Allergies/Adverse Reactions: Allergies lidocaine Allergy (Mild, Verified 06/14/17 15:39) swelling at site lithium Adverse Reaction (Severe, Verified 06/14/17 15:39) Other Suicidal ideations trazodone Adverse Reaction (Intermediate, Verified 06/14/17 15:39) PALPITATIONS adhesive tape Adverse Reaction (Mild, Verified 06/14/17 15:39) LATEX CLOTH TAPE RIPS SKIN OFF azithromycin [From Zithromax] Adverse Reaction (Mild, Verified 06/14/17 15:39) diarrhea, vomiting cephalexin monohydrate [From Keflex] Adverse Reaction (Mild, Verified 06/14/17 15:39) Vomiting clonazepam [From Klonopin] Adverse Reaction (Mild, Verified 06/14/17 15:39) CRYING latex Adverse Reaction (Mild, Verified 06/14/17 15:39) RASH milk Adverse Reaction (Mild, Verified 06/14/17 15:39) Diarrhea onion Adverse Reaction (Mild, Verified 06/14/17 15:39) RASH, GI UPSET povidone-iodine [From Betadine] Adverse Reaction (Mild, Verified 06/14/17 15:39) rash ropinirole HCl [From Requip] Adverse Reaction (Mild, Verified 06/14/17 15:39) Vomiting soap [From Betadine] Adverse Reaction (Mild, Verified 06/14/17 15:39) rash Home Medications: HOME MEDICATIONS Metoprolol Succinate [Toprol Xl] 400 mg PO DAILY 12/08/14 [Last Taken Unknown] Fluticasone Propionate [Flonase] 2 spray NS DAILY PRN 12/06/15 [Last Taken Unknown] Cyclobenzaprine HCl [Flexeril] 10 mg PO TID PRN #30 tab 09/14/16 [Last Taken Unknown] Budesonide/Formoterol Fumarate [Symbicort 160-4.5 Mcg Inhaler] 10.2 gm IH DAILY 01/17/17 [Last Taken Unknown] Dexlansoprazole [Dexilant] 30 mg PO DAILY 01/17/17 [Last Taken Unknown] Loratadine 10 mg PO DAILY 01/17/17 [Last Taken Unknown] Tiotropium [place] [Spiriva Respimat] 4 gm IH DAILY 01/17/17 [Last Taken Unknown ] Tramadol HCl [Rybix Odt] 100 mg PO TID 01/17/17 [Last Taken Unknown] Ondansetron [Zofran Odt] 4 mg PO Q6H PRN #20 tab 02/10/17 [Last Taken Unknown] Naproxen [Naprosyn] 500 mg PO BID #60 tablet 02/21/17 [Last Taken Unknown] predniSONE [Prednisone] 3 tab PO DAILY #9 tab 05/02/17 [Last Taken Unknown] Cyclobenzaprine HCl [Flexeril] 10 mg PO TID PRN #30 tab 06/14/17 [Last Taken Unknown] Naproxen [Naprosyn] 500 mg PO BID #60 tablet 06/14/17 [Last Taken Unknown] - History of Present Illness Narrative: Patient tripped at home and bumped her right carmen and both elbows. He also thinks she perhaps sprained her neck little bit as well. She rates her pain as moderate in intensity. Location Occurred: Reports: home Pain Location: Reports: neck, upper extremity, lower extremity Method of Injury: Reports: fall Severity: moderate Loss of Consciousness: Reports: no loss of consciousness Associated Symptoms - Trauma: Reports: denies symptoms Review of Systems - Review of Systems Constitutional: Present: See HPI EYE: Present: no symptoms reported ENT: Present: no symptoms reported Respiratory: Present: no symptoms reported Cardiology: Present: no symptoms reported Gastrointestinal/Abdominal: Present: no symptoms reported Genitourinary: Present: no symptoms reported Musculoskeletal: Present: See HPI Skin: Present: no symptoms reported Neurological: Present: no symptoms reported Endocrine: Present: no symptoms reported Hematologic/Lymphatic: Present: no symptoms reported Psych: Present: no symptoms reported - Patient's Past Medical History Patient History - Medical: Anxiety, Chronic Pain, Diabetes Type 2, Depression, GERD, Migraines, Seizures Patient History - Cardiac/Respiratory: Asthma, COPD, Hypertension Patient History - Cancer: No Hx of Cancer Patient History - Surgical Procedures: Appendectomy, Cholecystectomy, , Hysterectomy, Tubal Ligation, T & A Patient History - Other: None - Family History mom Family History - Medical: History Unknown dad Family History - Medical: History Unknown Family History - Cardiac/Respiratory: No pertinent hx - Social History Living Situations: home Abuse History: No History of abuse Psych History: Hx of Anxiety, Hx of Depression Alcohol Use: none Drug Use: none - Immunizations Immunizations Up to Date: Yes Hx Pneumococcal Vaccination: No History of Influenza Vaccine: No Physical Exam - Physical Exam General Appearance: Present: wd/wn, alert, moderate distress Head Exam: Present: normal inspection Eye Exam: Normal inspection: bilateral, PERRL: bilateral Ears, Nose, Throat: Present: normal ENT inspection, H, normal pharynx Neck: Present: limited range of motion, tender lateral - on the right Respiratory: Present: no respiratory distress, normal breath sounds, no accessory muscle use, chest nontender, lungs clear Cardiovascular/Chest: Present: regular rate, rhythm, no murmur, normal peripheral pulses Gastrointestinal/Abdominal: Present: normal bowel sounds, nontender, nondistended, soft, no organomegaly Rectal Exam: Present: deferred Back Exam: Present: normal inspection, normal range of motion Extremity Exam: Present: other - mild tenderness to palpation to both forearms without any evidence of any trauma or bruising or abrasions Neurological Exam: Present: alert, oriented, normal mood/affect Skin Exam: Present: normal color, warm/dry Lymphatic Exam: Present: no adenopathy ED Progress - Vital Signs Patient's Vital Signs:: I have reviewed the patient's vital signs. Vital Signs: Vital Signs 06/14/17 15:37 Temperature 36.4 C L Pulse Rate 80 Respiratory 12 Rate Blood Pressure 129/92 O2 Sat by Pulse 100 Oximetry - Progress/Reassessment Chief Complaint: Fall Plan - Plan Plan: Patient has a history of falls and most likely tripped again. Patient be started on Naprosyn and Flexeril and she follow up with her family physician as needed. Patient has a history of neurally mediated syncope and appears to be exhibiting some of these similar symptoms again, which I suspect are more psychologically based than anything else. Departure Clinical Impression: Cervical strain Qualifiers: Encounter type: initial encounter Qualified Code(s): S16.1XXA - Strain of muscle, fascia and tendon at neck level, initial encounter Contusion Qualifiers: Encounter type: initial encounter Contusion area: upper arm Laterality: unspecified laterality Qualified Code(s): S40.029A - Contusion of unspecified upper arm, initial encounter - Departure Disposition: Home self-care Condition: Good Instructions: Syncope, [id number], Cervical Strain and Sprain With Rehab- [facility] Referrals: Joel Meraz MD [Primary Care Provider] - Prescriptions: Cyclobenzaprine HCl [Flexeril] 10 mg PO TID PRN #30 tab PRN Reason: MUSCLE SPASMS Naproxen [Naprosyn] 500 mg PO BID #60 tablet
== END 2017-06-14 16:05 | disposition home or self-care (01) ==
LOC: ER 15:35
DX: S16.1XXA Strain of muscle, fascia and tendon at neck level, initial encounter (principal); S40.029A Contusion of unspecified upper arm, initial encounter; W01.10XA Fall on same level from slipping, tripping and stumbling with subsequent striking against unspecified object, initial encounter; Z91.81 History of falling; Y92.009 Unspecified place in unspecified non-institutional (private) residence as the place of occurrence of the external cause; G89.29 Other chronic pain; E11.9 Type 2 diabetes mellitus without complications; F41.8 Other specified anxiety disorders; K21.9 Gastro-esophageal reflux disease without esophagitis; J44.9 Chronic obstructive pulmonary disease, unspecified; I10 Essential (primary) hypertension

== ENCOUNTER 2017-06-27 23:45 | Emergency (ER) | payer OTHER ==
--- NOTE | 2017-06-28 00:06 | ERNOTE ---
Dizziness ER Record Date of Service: 06/28/17 Presenting Symptoms: dizziness, vertigo Time Seen by Provider: 06/28/17 00:01 Source: patient Immunizations: IMMUNIZATION HX Immunizations Up to Date Yes History of Influenza Vaccine No Hx Pneumococcal Vaccination No Allergies/Adverse Reactions: Allergies Allergy/AdvReac Type Severity Reaction Status Date / Time lidocaine Allergy Mild swelling Verified 06/27/17 23:54 at site lithium AdvReac Severe Other Verified 06/27/17 23:54 trazodone AdvReac Intermediate PALPITATION Verified 06/27/17 23:54 S adhesive tape AdvReac Mild LATEX Verified 06/27/17 23:54 CLOTH TAPE RIPS SKIN OFF azithromycin [From Zithromax] AdvReac Mild diarrhea, Verified 06/27/17 23:54 vomiting cephalexin monohydrate AdvReac Mild Vomiting Verified 06/27/17 23:54 [From Keflex] clonazepam [From Klonopin] AdvReac Mild CRYING Verified 06/27/17 23:54 latex AdvReac Mild RASH Verified 06/27/17 23:54 milk AdvReac Mild Diarrhea Verified 06/27/17 23:54 onion AdvReac Mild RASH, GI Verified 06/27/17 23:54 UPSET povidone-iodine AdvReac Mild rash Verified 06/27/17 23:54 [From Betadine] ropinirole HCl [From Requip] AdvReac Mild Vomiting Verified 06/27/17 23:54 soap [From Betadine] AdvReac Mild rash Verified 06/27/17 23:54 Home Medications: HOME MEDICATIONS Metoprolol Succinate [Toprol Xl] 400 mg PO DAILY 12/08/14 [Last Taken Unknown] Fluticasone Propionate [Flonase] 2 spray NS DAILY PRN 12/06/15 [Last Taken Unknown] Budesonide/Formoterol Fumarate [Symbicort 160-4.5 Mcg Inhaler] 10.2 gm IH DAILY 01/17/17 [Last Taken Unknown] Dexlansoprazole [Dexilant] 30 mg PO DAILY 01/17/17 [Last Taken Unknown] Loratadine 10 mg PO DAILY 01/17/17 [Last Taken Unknown] Tiotropium [place] [Spiriva Respimat] 4 gm IH DAILY 01/17/17 [Last Taken Unknown ] Tramadol HCl [Rybix Odt] 100 mg PO TID 01/17/17 [Last Taken Unknown] Ondansetron [Zofran Odt] 4 mg PO Q6H PRN #20 tab 02/10/17 [Last Taken Unknown] Naproxen [Naprosyn] 500 mg PO BID #60 tablet 06/14/17 [Last Taken Unknown] Baclofen 10 mg PO TID 06/28/17 [Last Taken Unknown] Meclizine HCl [Antivert] 25 mg PO Q8H PRN #12 tablet 06/28/17 [Last Taken Unknown] predniSONE [Prednisone] 60 mg PO DAILY 06/28/17 [Last Taken Unknown] - History of Present Illness Narrative: This is a 37-year-old female who comes to the emergency department complaining of dizziness. It started tonight when she was sitting on the sofa watching television. Of importance the patient is presently on a Holter monitor since she had a syncopal episode a week and a half ago. The patient says that she was not exerting herself and had not eaten or drank anything immediately prior to the symptoms starting. They've persisted here in the department. She says it's worse when she closes her eyes. She denies having abdominal pain and vaginal bleeding urinary symptoms diarrhea or vomiting. She says she has a dull ache across her entire chest and says she feels like she can't catch her breath. Patient has no other somatic complaints Review of Systems - Review of Systems Constitutional: Present: no symptoms reported, See HPI EYE: Present: no symptoms reported ENT: Present: no symptoms reported Respiratory: Present: shortness of breath Cardiology: Present: chest pain Gastrointestinal/Abdominal: Present: no symptoms reported Genitourinary: Present: no symptoms reported Musculoskeletal: Present: no symptoms reported Skin: Present: no symptoms reported Neurological: Present: dizziness/light-headedness Endocrine: Present: no symptoms reported Hematologic/Lymphatic: Present: no symptoms reported Psych: Present: no symptoms reported All Other Systems: All systems neg except as marked - Patient's Past Medical History Patient History - Medical: Anxiety, Chronic Pain, Diabetes Type 2, Depression, GERD, Migraines, Seizures, Other Patient History - Cardiac/Respiratory: Asthma, COPD, Hypertension Patient History - Cancer: No Hx of Cancer Patient History - Surgical Procedures: Appendectomy, Cholecystectomy, , Hysterectomy, Tubal Ligation, T & A Patient History - Other: None - Family History mom Family History - Medical: History Unknown dad Family History - Medical: History Unknown Family History - Cardiac/Respiratory: No pertinent hx - Social History Living Situations: home Abuse History: No History of abuse Psych History: Hx of Anxiety, Hx of Depression Smoking Status: Current every day smoker Alcohol Use: none Drug Use: none - Immunizations Immunizations Up to Date: Yes Hx Pneumococcal Vaccination: No History of Influenza Vaccine: No Physical Exam - Physical Exam General Appearance: Present: wd/wn, alert, no apparent distress Head Exam: Present: normal inspection, no evidence of injury Eye Exam: Normal inspection: bilateral, PERRL: bilateral, EOMI: bilateral - patient has horizontal nystagmus Ears, Nose, Throat: Present: normal ENT inspection, normal pharynx Neck: Present: normal inspection, nontender Respiratory: Present: no respiratory distress, normal breath sounds, no accessory muscle use, chest nontender, lungs clear Cardiovascular/Chest: Present: regular rate, rhythm, no murmur, normal peripheral pulses Gastrointestinal/Abdominal: Present: normal bowel sounds, nontender, nondistended, soft, no organomegaly Back Exam: Present: normal inspection, normal range of motion, no CVA tenderness , no vertebral tenderness Extremity Exam: Present: normal inspection, non-tender, normal range of motion, no edema Neurological Exam: Present: alert, oriented, normal mood/affect, no motor/ sensory deficits, other - patient had a bit of swaying when I ask her to stand up with her arms out and close her eyes. She did not lose balance. She says her symptoms got worse. Skin Exam: Present: normal color, warm/dry Lymphatic Exam: Present: no adenopathy ED Progress - Results and Orders Patient's Lab Results:: I have reviewed the patient's lab results. - Vital Signs Patient's Vital Signs:: I have reviewed the patient's vital signs. Vital Signs: Vital Signs 06/27/17 23:47 Temperature 36.7 C Pulse Rate 93 Respiratory 14 Rate Blood Pressure 139/99 O2 Sat by Pulse 98 Oximetry - EKG EKG: NSR, other - axis borderline normal at 91 normal P-wave T-wave flattening laterally and really precordially as well no ST segment elevation QRS duration is 112 interventricular conduction delay but not bundle branch block - Progress/Reassessment Chief Complaint: Dizziness Progress:: Unchanged Progress Note-Subjective: 06/28/17 01:44 The patient says that she is feeling tiny bit better. Still feels a little dizzy and still feels a funny sensation across her chest. Departure Clinical Impression: Vertigo - Departure Disposition: Home self-care Condition: Fair Instructions: Vertigo, [id number] Additional Instructions: As we have discussed, Belinda, I do not see a definite cause for urinary symptoms. The dizziness from your physical exam seems likely to be caused by an inner ear problem. I've given you a prescription for a medicine called Antivert. He should take this medicine every 8 hours as needed for the dizziness. It may make you sleepy so exercise care when you are taking it. There are no signs of any damage to her heart and her EKG does not show signs of a heart attack. This does not mean that your heart is okay however. I want you to keep wearing the Holter monitor and when you take it in to your doctor in want you to let them know you were seen in the ER for other symptoms. If you develop any new concerning symptoms I want you to return to the ER. As we discussed her evaluation here tonight was not a comprehensive evaluation. It was very focused. Prescriptions: Meclizine HCl [Antivert] 25 mg PO Q8H PRN #12 tablet PRN Reason: Vertigo
[2017-06-28 00:24] LABS: Hematocrit 43.3 % (37.0-47.0); Hemoglobin 14.9 gm/dL (12.5-16.0); Mean Cell Volume 89.1 fl (78-100); Mean Corpuscular Hemoglobin 30.7 pg (27-31); Mean Corpuscular Hgb Conc 34.4 g/dl (32-36); Mean Platelet Volume 10.6 fl (6.0-9.5); Neutrophil # 7.8 K/mm3 (1.3-6.0); Neutrophil % 81.3 % (42-75.0); Platelet Count 272 K/mm3 (150-450); Red Blood Count 4.86 M/mm3 (4.2-5.4); Red Cell Distribution Width 12.4 % (11.5-14.0); White Blood Count 9.5 K/mm3 (4.0-10.5)
[2017-06-28 00:42] LABS: ALT 27 U/L (19-67); AST 15 U/L (0-48); Albumin * 3.9 gm/dl (3.4-5.0); Alkaline Phosphatase * 82 U/L (50-170); Anion Gap 14.8 mmol/L (6.8-13.8); BUN/Creatinine Ratio 18.2 (9.0-21.6); Bilirubin, Total 0.2 mg/dL (0.0-1.1); Blood Urea Nitrogen 14 mg/dL (3-23); Calcium * 9.2 mg/dL (7.9-10.9); Chloride 105 mmol/L (97-106); Glucose * 162 mg/dL (70-110); Potassium 3.8 mmol/L (3.4-4.6); Sodium 140 mmol/L (132-142); Total Protein 7.7 gm/dL (6.2-8.2); Troponin I Less than 0.017 ng/ml (0.00-0.10)
[2017-06-28 01:25] VITALS: BP 127/83
[2017-06-28 01:25] LABS: Urine Amorphous Sediment Few - 1+ (NONE-FEW); Urine Appearance Slightly Cloudy; Urine Bacteria None Seen; Urine Bilirubin Negative (NEGATIVE); Urine Blood Negative /ul (NEGATIVE); Urine Color Pale Yellow; Urine Ketone Negative (NEGATIVE); Urine Mucus Few - 1+; Urine Nitrite Negative (NEGATIVE); Urine Protein Negative (NEGATIVE); Urine RBC 0-5 /hpf (0-5); Urine Urobilinogen Normal (NORMAL)
[2017-06-28] MEDS ORDERED: HYDROcodone/ACETAMINOPHEN 1 EACH TABLET PO ONE (01:44)
[2017-06-28] MEDS ORDERED: MECLIZINE HCL 25 MG TABLET PO ONE (01:46)
[2017-06-28] MEDS ORDERED: HYDROcodone/ACETAMINOPHEN 1 EACH TABLET ONE (01:49)
[2017-06-28] MEDS ORDERED: MECLIZINE HCL 25 MG TABLET ONE (01:50)
== END 2017-06-28 01:55 | disposition home or self-care (01) ==
LOC: ER 23:45
DX: R42 Dizziness and giddiness (principal); F17.200 Nicotine dependence, unspecified, uncomplicated; J44.9 Chronic obstructive pulmonary disease, unspecified; K21.9 Gastro-esophageal reflux disease without esophagitis; I10 Essential (primary) hypertension

== ENCOUNTER 2017-06-30 20:23 | Emergency (ER) | payer OTHER ==
[2017-06-30] MEDS ORDERED: ASPIRIN 81 MG TAB.CHEW PO ONE (20:34)
[2017-06-30 20:54] LABS: Hematocrit 41.1 % (37.0-47.0); Hemoglobin 13.9 gm/dL (12.5-16.0); Mean Cell Volume 91.3 fl (78-100); Mean Corpuscular Hemoglobin 30.9 pg (27-31); Mean Corpuscular Hgb Conc 33.8 g/dl (32-36); Mean Platelet Volume 10.3 fl (6.0-9.5); Neutrophil # 3.5 K/mm3 (1.3-6.0); Neutrophil % 49.7 % (42-75.0); Platelet Count 221 K/mm3 (150-450); Red Cell Distribution Width 12.7 % (11.5-14.0); White Blood Count 7.1 K/mm3 (4.0-10.5)
[2017-06-30 21:04] LABS: Prothrombin Time (Patient) 10.2 Seconds (9.0-11.0)
[2017-06-30 21:06] LABS: INR 1.02 INR (0.90-1.10); Partial Thrombolplastin Time 27.3 Seconds (24-32)
[2017-06-30 21:10] LABS: ALT 38 U/L (19-67); AST 23 U/L (0-48); Albumin * 3.2 gm/dl (3.4-5.0); Alkaline Phosphatase * 73 U/L (50-170); Anion Gap 11.5 mmol/L (6.8-13.8); BUN/Creatinine Ratio 23.3 (9.0-21.6); Bilirubin, Total 0.2 mg/dL (0.0-1.1); Blood Urea Nitrogen 21 mg/dL (3-23); Ca. Corrected For Albumin 8.5 mg/dL (8.4-10.2); Calcium * 8.2 mg/dL (7.9-10.9); Carbon Dioxide 27.1 mmol/L (24-32.6); Chloride 107 mmol/L (97-106); Glucose * 131 mg/dL (70-110); Potassium 3.6 mmol/L (3.4-4.6); Sodium 142 mmol/L (132-142); Total Protein 6.3 gm/dL (6.2-8.2); Troponin I Less than 0.017 ng/ml (0.00-0.10)
[2017-06-30] MEDS ORDERED: NORMAL SALINE 1,000 ML IV ONE (21:26)
--- NOTE | 2017-06-30 21:31 | ERNOTE ---
Chest Pain/Cardiac HPI Date of Service: 06/30/17 Chief Complaint: Chest Pain Time Seen by Provider: 06/30/17 20:33 Source: patient Exam Limitations: no limitations Immunizations: IMMUNIZATION HX Immunizations Up to Date Yes History of Influenza Vaccine No Hx Pneumococcal Vaccination No Allergies/Adverse Reactions: Allergies lidocaine Allergy (Mild, Verified 06/30/17 20:32) swelling at site lithium Adverse Reaction (Severe, Verified 06/30/17 20:32) Other Suicidal ideations trazodone Adverse Reaction (Intermediate, Verified 06/30/17 20:32) PALPITATIONS adhesive tape Adverse Reaction (Mild, Verified 06/30/17 20:32) LATEX CLOTH TAPE RIPS SKIN OFF azithromycin [From Zithromax] Adverse Reaction (Mild, Verified 06/30/17 20:32) diarrhea, vomiting cephalexin monohydrate [From Keflex] Adverse Reaction (Mild, Verified 06/30/17 20:32) Vomiting clonazepam [From Klonopin] Adverse Reaction (Mild, Verified 06/30/17 20:32) CRYING latex Adverse Reaction (Mild, Verified 06/30/17 20:32) RASH milk Adverse Reaction (Mild, Verified 06/30/17 20:32) Diarrhea onion Adverse Reaction (Mild, Verified 06/30/17 20:32) RASH, GI UPSET povidone-iodine [From Betadine] Adverse Reaction (Mild, Verified 06/30/17 20:32) rash ropinirole HCl [From Requip] Adverse Reaction (Mild, Verified 06/30/17 20:32) Vomiting soap [From Betadine] Adverse Reaction (Mild, Verified 06/30/17 20:32) rash Home Medications: HOME MEDICATIONS Metoprolol Succinate [Toprol Xl] 400 mg PO DAILY 12/08/14 [Last Taken Unknown] Fluticasone Propionate [Flonase] 2 spray NS DAILY PRN 12/06/15 [Last Taken Unknown] Budesonide/Formoterol Fumarate [Symbicort 160-4.5 Mcg Inhaler] 10.2 gm IH DAILY 01/17/17 [Last Taken Unknown] Dexlansoprazole [Dexilant] 30 mg PO DAILY 01/17/17 [Last Taken Unknown] Loratadine 10 mg PO DAILY 01/17/17 [Last Taken Unknown] Tiotropium [place] [Spiriva Respimat] 4 gm IH DAILY 01/17/17 [Last Taken Unknown ] Tramadol HCl [Rybix Odt] 100 mg PO TID 01/17/17 [Last Taken Unknown] Ondansetron [Zofran Odt] 4 mg PO Q6H PRN #20 tab 02/10/17 [Last Taken Unknown] Naproxen [Naprosyn] 500 mg PO BID #60 tablet 06/14/17 [Last Taken Unknown] Baclofen 10 mg PO TID 06/28/17 [Last Taken Unknown] Meclizine HCl [Antivert] 25 mg PO Q8H PRN #12 tablet 06/28/17 [Last Taken Unknown] predniSONE [Prednisone] 60 mg PO DAILY 06/28/17 [Last Taken Unknown] Narrative: Pt. comes in with c/o chest pain and L arm numbness and L facial numbness for two hours. Pt. denies any NVD, SOB, fever, recent illness but does state that she has a mild headache as well. Pt. was just diagnosed with LVH and a possible blockage in her heart and has been under a lot of stress at home recently. Pt. denies any prehospital treatment. Review of Systems - Review of Systems Constitutional: Present: no symptoms reported. Absent: recent illness, fever, chills, weakness, fatigue, malaise EYE: Present: no symptoms reported ENT: Present: no symptoms reported Respiratory: Present: no symptoms reported. Absent: shortness of breath, cough , wheezing Cardiology: Present: chest pain. Absent: palpitations, syncope, edema Gastrointestinal/Abdominal: Present: no symptoms reported. Absent: nausea, vomiting, diarrhea Genitourinary: Present: no symptoms reported. Absent: frequency, decreased urinary output Musculoskeletal: Present: no symptoms reported. Absent: back pain, joint pain Skin: Present: no symptoms reported Neurological: Present: headache, numbness, tingling All Other Systems: All systems neg except as marked - Patient's Past Medical History Patient History - Medical: Anxiety, Chronic Pain, Diabetes Type 2, Depression, GERD, Migraines, Seizures Patient History - Cardiac/Respiratory: Asthma, COPD, Hypertension Patient History - Cancer: No Hx of Cancer Patient History - Surgical Procedures: Appendectomy, Cholecystectomy, , Hysterectomy, Tubal Ligation, T & A Patient History - Other: None - Family History mom Family History - Medical: History Unknown dad Family History - Medical: History Unknown Family History - Cardiac/Respiratory: No pertinent hx - Social History Living Situations: home Abuse History: No History of abuse Psych History: Hx of Anxiety, Hx of Depression Smoking Status: Current every day smoker - Immunizations Immunizations Up to Date: Yes Hx Pneumococcal Vaccination: No History of Influenza Vaccine: No Physical Exam - Physical Exam General Appearance: Present: wd/wn, alert, no apparent distress Head Exam: Present: normal inspection, no evidence of injury Eye Exam: Normal inspection: bilateral, PERRL: bilateral, EOMI: bilateral Ears, Nose, Throat: Present: normal ENT inspection, normal pharynx Neck: Present: normal inspection, nontender. Absent: lymphadenopathy (R), lymphadenopathy (L) Respiratory: Present: no respiratory distress, normal breath sounds, no accessory muscle use, chest nontender, lungs clear Cardiovascular/Chest: Present: regular rate, rhythm, no murmur, normal peripheral pulses Gastrointestinal/Abdominal: Present: normal bowel sounds, nontender, nondistended, soft, no organomegaly Back Exam: Present: normal inspection, normal range of motion, no CVA tenderness , no vertebral tenderness Extremity Exam: Present: normal inspection, non-tender, normal range of motion, no edema Neurological Exam: Present: alert, oriented, normal mood/affect, no motor/ sensory deficits, sports broadcaster II-XII nml as tested, normal cerebellar test, other - pt. able to feel touch soft and sharp but states it is decreased during exam Skin Exam: Present: normal color, warm/dry. Absent: pallor, skin rash ED Progress - Date and Time Seen: Date and Time: 06/30/17 21:55 Will rule out acute CVA but feel that pt. symptoms are stress related due to recent diagnosis and external factors. - Results and Orders Patient's Lab Results:: I have reviewed the patient's lab results. - Vital Signs Patient's Vital Signs:: I have reviewed the patient's vital signs. Vital Signs: Vital Signs 06/30/17 20:33 Temperature 36.6 C Pulse Rate 97 Respiratory 16 Rate Blood Pressure 130/90 O2 Sat by Pulse 98 Oximetry - EKG EKG: NSR EKG read: Reviewed by me EKG Comments: no acute - CT/Ultrasound CT/Ultrasound Narrative: CT head negative - Progress/Reassessment Chief Complaint: Chest Pain Progress:: Improved Departure Clinical Impression: Stress reaction Migraine headache Qualifiers: Migraine type: without aura Status migrainosus presence: without status migrainosus Intractability: not intractable Qualified Code(s): G43.009 - Migraine without aura, not intractable, without status migrainosus - Departure Disposition: Home self-care Condition: Good Instructions: Paresthesia, Dysphoria Additional Instructions: Please follow up with Jemima and Dr Tellez as planned Referrals: Jemima Barbour ARNP [Primary Care Provider] -
[2017-06-30] MEDS ORDERED: PROMETHAZINE HCL 25 MG in DEXTROSE 5 % IN WATER 50 ML IV ONE ×2 (21:50)
[2017-06-30] MEDS ORDERED: KETOROLAC TROMETHAMINE 30 MG/ML VIAL IV ONE (21:50)
[2017-06-30] MEDS ORDERED: diphenhydrAMINE HCL 50 MG/ML VIAL IV ONE (21:50)
[2017-06-30] MEDS ORDERED: KETOROLAC TROMETHAMINE 30 MG/ML VIAL ONE (22:12)
[2017-06-30] MEDS ORDERED: diphenhydrAMINE HCL 50 MG/ML VIAL ONE (22:12)
[2017-06-30 22:38] VITALS: BP 153/99
== END 2017-06-30 22:43 | disposition home or self-care (01) ==
LOC: ER 20:23
DX: F43.0 Acute stress reaction (principal); G43.909 Migraine, unspecified, not intractable, without status migrainosus; F17.200 Nicotine dependence, unspecified, uncomplicated

== ENCOUNTER 2017-07-10 18:44 | Emergency (ER) | payer OTHER ==
[2017-07-10 19:14] LABS: Urine Bilirubin Negative (NEGATIVE); Urine Blood Negative /ul (NEGATIVE); Urine Ketone Negative (NEGATIVE); Urine Nitrite Negative (NEGATIVE); Urine Protein Negative (NEGATIVE); Urine Specific Gravity 1.025 SP.GR. (1.005-1.010); Urine Urobilinogen Normal (NORMAL)
[2017-07-10 19:21] VITALS: BP 153/94
[2017-07-10 19:23] LABS: Urine Appearance Slightly Cloudy; Urine Bacteria 4+; Urine Color Yellow; Urine RBC None Seen /hpf (0-5); Urine WBC None Seen /hpf (0-5)
--- NOTE | 2017-07-10 19:38 | ERNOTE ---
Back Pain ER HPI Date of Service: 07/10/17 - 19:25 Presenting Symptoms: hx chronic back pain Time Seen by Provider: 07/10/17 19:25 Source: patient Exam Limitations: no limitations Immunizations: IMMUNIZATION HX Immunizations Up to Date Yes History of Influenza Vaccine No Hx Pneumococcal Vaccination No Allergies/Adverse Reactions: Allergies lidocaine Allergy (Mild, Verified 06/30/17 20:32) swelling at site lithium Adverse Reaction (Severe, Verified 06/30/17 20:32) Other Suicidal ideations trazodone Adverse Reaction (Intermediate, Verified 06/30/17 20:32) PALPITATIONS adhesive tape Adverse Reaction (Mild, Verified 06/30/17 20:32) LATEX CLOTH TAPE RIPS SKIN OFF azithromycin [From Zithromax] Adverse Reaction (Mild, Verified 06/30/17 20:32) diarrhea, vomiting cephalexin monohydrate [From Keflex] Adverse Reaction (Mild, Verified 06/30/17 20:32) Vomiting clonazepam [From Klonopin] Adverse Reaction (Mild, Verified 06/30/17 20:32) CRYING latex Adverse Reaction (Mild, Verified 06/30/17 20:32) RASH milk Adverse Reaction (Mild, Verified 06/30/17 20:32) Diarrhea onion Adverse Reaction (Mild, Verified 06/30/17 20:32) RASH, GI UPSET povidone-iodine [From Betadine] Adverse Reaction (Mild, Verified 06/30/17 20:32) rash ropinirole HCl [From Requip] Adverse Reaction (Mild, Verified 06/30/17 20:32) Vomiting soap [From Betadine] Adverse Reaction (Mild, Verified 06/30/17 20:32) rash Home Medications: HOME MEDICATIONS Metoprolol Succinate [Toprol Xl] 400 mg PO DAILY 12/08/14 [Last Taken Unknown] Fluticasone Propionate [Flonase] 2 spray NS DAILY PRN 12/06/15 [Last Taken Unknown] Budesonide/Formoterol Fumarate [Symbicort 160-4.5 Mcg Inhaler] 10.2 gm IH DAILY 01/17/17 [Last Taken Unknown] Dexlansoprazole [Dexilant] 30 mg PO DAILY 01/17/17 [Last Taken Unknown] Loratadine 10 mg PO DAILY 01/17/17 [Last Taken Unknown] Tiotropium [place] [Spiriva Respimat] 4 gm IH DAILY 01/17/17 [Last Taken Unknown ] Tramadol HCl [Rybix Odt] 100 mg PO TID 01/17/17 [Last Taken Unknown] Ondansetron [Zofran Odt] 4 mg PO Q6H PRN #20 tab 02/10/17 [Last Taken Unknown] Meclizine HCl [Antivert] 25 mg PO Q8H PRN #12 tablet 06/28/17 [Last Taken Unknown] Narrative: Patient was doing little to nothing she states and she had sudden severe low back pain with muscle spasm. Patient has a long-standing history of back pain and has had numerous x-rays and recently just finished a course of prednisone. Patient denies any trauma but is having difficulty bending because of the pain and spasm. Timing: Reports: constant Quality/Severity: Reports: severe Location of pain: Reports: lower back Activities at Onset: Reports: none Recent Injury?: Reports: no Possible Precipitating Factor: Reports: none - chronic back pain Modifying Factors - (Improves): Reports: supine position Modifying Factors - (Worsens): Reports: other - movement Associated Symptoms: Reports: none Prior Treament: Reports: recently seen, treated by physician Review of Systems - Review of Systems Constitutional: Present: See HPI EYE: Present: no symptoms reported ENT: Present: no symptoms reported Respiratory: Present: no symptoms reported Cardiology: Present: no symptoms reported Gastrointestinal/Abdominal: Present: no symptoms reported Genitourinary: Present: no symptoms reported Musculoskeletal: Present: back pain, muscle pain, muscle stiffness Skin: Present: no symptoms reported Neurological: Present: no symptoms reported Endocrine: Present: no symptoms reported Hematologic/Lymphatic: Present: no symptoms reported Psych: Present: no symptoms reported - Patient's Past Medical History Patient History - Medical: Anxiety, Chronic Pain, Diabetes Type 2, Depression, GERD, Migraines, Seizures Patient History - Cardiac/Respiratory: Asthma, COPD, Hypertension Patient History - Cancer: No Hx of Cancer Patient History - Surgical Procedures: Appendectomy, Cholecystectomy, , Hysterectomy, Tubal Ligation, T & A Patient History - Other: None - Family History mom Family History - Medical: History Unknown dad Family History - Medical: History Unknown Family History - Cardiac/Respiratory: No pertinent hx - Social History Living Situations: significant other Abuse History: No History of abuse Psych History: Hx of Anxiety, Hx of Depression - Immunizations Immunizations Up to Date: Yes Hx Pneumococcal Vaccination: No History of Influenza Vaccine: No Physical Exam - Physical Exam General Appearance: Present: wd/wn, alert, severe distress Head Exam: Present: normal inspection Eye Exam: Normal inspection: bilateral, PERRL: bilateral Ears, Nose, Throat: Present: normal ENT inspection, H, normal pharynx Neck: Present: normal inspection, nontender Respiratory: Present: no respiratory distress, normal breath sounds, no accessory muscle use, chest nontender, lungs clear Cardiovascular/Chest: Present: regular rate, rhythm, no murmur, normal peripheral pulses Gastrointestinal/Abdominal: Present: normal bowel sounds, nontender, nondistended, soft, no organomegaly Rectal Exam: Present: deferred Back Exam: Present: decreased range of motion, muscle spasm, other - questionable left flank tenderness however there is concomitant muscle spasm in the area as well Extremity Exam: Present: normal inspection, non-tender, no edema, normal range of motion Neurological Exam: Present: alert, oriented, normal mood/affect Skin Exam: Present: normal color, warm/dry Lymphatic Exam: Present: no adenopathy ED Progress - Results and Orders Patient's Lab Results:: I have reviewed the patient's lab results. - Vital Signs Patient's Vital Signs:: I have reviewed the patient's vital signs. Vital Signs: Vital Signs 07/10/17 19:15 Temperature 98 C H Pulse Rate 125 H Respiratory 18 Rate Blood Pressure 153/94 - Progress/Reassessment Chief Complaint: Back Pain Plan - Plan Plan: Patient has a profound history of back pain and muscle spasm. She is normally on baclofen over she states she has run out of her baclofen. Patient will need to be restarted on her baclofen and be given a nonsteroidal anti-inflammatory to assist in the overall back pain. When the nurse went in the room to give her an injection of Toradol and Norflex the patient became angry and left, basically eloping. While the patient came in and what appeared to be an antalgic posture she walked out not in an antalgic posture walked out her room and strided purposefully, after when she came in she was hunched over and could barely walk. Patient was told that Toradol would be a reasonable treatment for some that has a kidney stone and that Norflex would help with the spasm that she was having in her back, however she did not have any blood in the urine so unlikely that she had a kidney stone at this juncture. I had intended to give the patient a refill on her baclofen as well as Anaprox for the inflammation however she walked out without her prescription and without discharge instructions. Patient was under the perception that she would be given a narcotic for pain and the evolution of our care for her here in the ED was aborted because she left angry. Departure Clinical Impression: Muscle spasm of back Back pain Qualifiers: Back pain location: low back pain Chronicity: chronic Back pain laterality: left Sciatica presence: without sciatica Qualified Code(s): M54.5 - Low back pain; G89.29 - Other chronic pain; G89.29 - Other chronic pain - Departure Disposition: Home self-care Condition: Fair Instructions: Low Back Sprain With Rehab-SportsMed, Back Pain, Adult, Easy-to- Read, Muscle Cramps and Spasms, [id number] Referrals: Joel Meraz MD [Primary Care Provider] -
[2017-07-10] MEDS ORDERED: KETOROLAC TROMETHAMINE 60 MG/2 ML VIAL IM ONE ×2 (19:40→19:47)
[2017-07-10] MEDS ORDERED: ORPHENADRINE CITRATE 30 MG/ML VIAL IM ONE (19:40)
[2017-07-10] MEDS ORDERED: ORPHENADRINE CITRATE 30 MG/ML VIAL ONE (19:47)
== END 2017-07-10 19:50 | disposition left against medical advice (07) ==
LOC: ER 18:44
DX: M62.830 Muscle spasm of back (principal); M54.5 Low back pain; G89.29 Other chronic pain; E11.9 Type 2 diabetes mellitus without complications; K21.9 Gastro-esophageal reflux disease without esophagitis; J44.9 Chronic obstructive pulmonary disease, unspecified; I10 Essential (primary) hypertension; F41.8 Other specified anxiety disorders; Z53.21 Procedure and treatment not carried out due to patient leaving prior to being seen by health care provider

== ENCOUNTER 2017-07-15 19:34 | Emergency (ER) | payer OTHER ==
[2017-07-15] MEDS ORDERED: PROMETHAZINE HCL 50 MG/ML AMPUL IM ONE ×2 (20:15→20:22)
[2017-07-15] MEDS ORDERED: KETOROLAC TROMETHAMINE 60 MG/2 ML VIAL IM ONE ×2 (20:15→20:17)
--- NOTE | 2017-07-15 20:16 | ERNOTE ---
Abdominal HPI - Narrative Date of Service: 07/15/17 - General Chief Complaint: Abdominal Pain Time Seen by Provider: 07/15/17 20:02 Source: patient, RN notes reviewed, past records Exam Limitations: no limitations - Immun/Allergies/Home Medications Immunizatons: IMMUNIZATION HX Immunizations Up to Date Yes History of Influenza Vaccine No Hx Pneumococcal Vaccination No Allergies/Adverse Reactions: Allergies lidocaine Allergy (Mild, Verified 07/15/17 19:46) swelling at site lithium Adverse Reaction (Severe, Verified 07/15/17 19:46) Other Suicidal ideations trazodone Adverse Reaction (Intermediate, Verified 07/15/17 19:46) PALPITATIONS adhesive tape Adverse Reaction (Mild, Verified 07/15/17 19:46) LATEX CLOTH TAPE RIPS SKIN OFF azithromycin [From Zithromax] Adverse Reaction (Mild, Verified 07/15/17 19:46) diarrhea, vomiting cephalexin monohydrate [From Keflex] Adverse Reaction (Mild, Verified 07/15/17 19:46) Vomiting clonazepam [From Klonopin] Adverse Reaction (Mild, Verified 07/15/17 19:46) CRYING latex Adverse Reaction (Mild, Verified 07/15/17 19:46) RASH milk Adverse Reaction (Mild, Verified 07/15/17 19:46) Diarrhea onion Adverse Reaction (Mild, Verified 07/15/17 19:46) RASH, GI UPSET povidone-iodine [From Betadine] Adverse Reaction (Mild, Verified 07/15/17 19:46) rash ropinirole HCl [From Requip] Adverse Reaction (Mild, Verified 07/15/17 19:46) Vomiting soap [From Betadine] Adverse Reaction (Mild, Verified 07/15/17 19:46) rash Home Medications: HOME MEDICATIONS Metoprolol Succinate [Toprol Xl] 400 mg PO DAILY 12/08/14 [Last Taken Unknown] Fluticasone Propionate [Flonase] 2 spray NS DAILY PRN 12/06/15 [Last Taken Unknown] Budesonide/Formoterol Fumarate [Symbicort 160-4.5 Mcg Inhaler] 10.2 gm IH DAILY 01/17/17 [Last Taken Unknown] Dexlansoprazole [Dexilant] 30 mg PO DAILY 01/17/17 [Last Taken Unknown] Loratadine 10 mg PO DAILY 01/17/17 [Last Taken Unknown] Tiotropium [place] [Spiriva Respimat] 4 gm IH DAILY 01/17/17 [Last Taken Unknown ] Tramadol HCl [Rybix Odt] 100 mg PO TID 01/17/17 [Last Taken Unknown] Ondansetron [Zofran Odt] 4 mg PO Q6H PRN #20 tab 02/10/17 [Last Taken Unknown] Meclizine HCl [Antivert] 25 mg PO Q8H PRN #12 tablet 06/28/17 [Last Taken Unknown] - History of Present Illness Narrative: Belinda is a 37-year-old female who presents to the emergency department for left- sided abdominal pain that began 5 days ago. She presented here that day for flank pain. She was offered Toradol IM and became angry. She then went to [facility] and was evaluated. Her workup was essentially unremarkable. She had a noncontrast CT of the abdomen and pelvis at that time. 2 days later she was evaluated [facility]. He had reviewed the CT scan as well and felt that her pain may be due to diverticulitis as there were scattered diverticuli noted on the CT scan or possibly due to endometriosis. She then saw Dr. Conrad in gastroenterology at [facility] the following day. A CT scan with contrast was ordered but requires prior authorization and has not yet been scheduled. I'll review her clinic chart, she also contacted her primary care provider's office that day asking for additional pain medication. She is routinely prescribed tramadol, but her physician was out of the office at the time. She has continued to have the same pain. She has occasional nausea but no vomiting. She reports having a normal bowel movement this morning. Date (Duration): 07/08/17 Timing: constant Quality: severe, aching Activities at Onset: none Modifying Factors - (Improves): Present: other - [place] Modifying Factors - (Worsens): Present: defecating, eating, movement, urinating Prior Treatment: Present: recently seen, treated by physician. Absent: currently on antibiotics Review of Systems - Review of Systems Constitutional: Present: malaise. Absent: fever, chills EYE: Present: no symptoms reported ENT: Absent: nose congestion, sore throat Respiratory: Absent: shortness of breath, cough Cardiology: Absent: chest pain, syncope Gastrointestinal/Abdominal: Present: nausea, abdominal pain, eating less, drinking less. Absent: vomiting, diarrhea, constipation Genitourinary: Absent: frequency, dysuria, hematuria Musculoskeletal: Absent: joint pain, joint swelling Skin: Absent: rash, lesions Neurological: Absent: headache, dizziness/light-headedness Endocrine: Present: no symptoms reported Hematologic/Lymphatic: Present: no symptoms reported Psych: Present: emotional problems - Patient's Past Medical History Patient History - Medical: Anxiety, Chronic Pain, Diabetes Type 2, Depression, GERD, Migraines, Obesity, Seizures Patient History - Cardiac/Respiratory: Asthma, COPD, Hypertension Patient History - Cancer: No Hx of Cancer Patient History - Surgical Procedures: Appendectomy, Cholecystectomy, , Hysterectomy, Tubal Ligation, T & A Patient History - Other: None LMP (females 10-50): other - Family History mom Family History - Medical: History Unknown dad Family History - Medical: History Unknown Family History - Cardiac/Respiratory: No pertinent hx - Social History Living Situations: home Abuse History: No History of abuse Psych History: Hx of Anxiety, Hx of Depression Smoking Status: Current every day smoker Have you smoked in the past 12 months: Yes Do you dip or chew tobacco: No Alcohol Use: none Drug Use: none - Immunizations Immunizations Up to Date: Yes Hx Pneumococcal Vaccination: No History of Influenza Vaccine: No Physical Exam - Physical Exam General Appearance: Present: alert, no apparent distress, obese, other - disheveled, wearing a tank top and pajama pants in cold weather Neck: Present: normal inspection, nontender, supple Respiratory: Present: no respiratory distress, normal breath sounds, no accessory muscle use, lungs clear Cardiovascular/Chest: Present: regular rate, rhythm, no murmur, normal peripheral pulses Gastrointestinal/Abdominal: Present: soft, tenderness - Left upper and lower quadrant, abnormal bowel sounds - sluggish, distended - Obese. Absent: guarding , mass Back Exam: Present: normal inspection, normal range of motion, no CVA tenderness Extremity Exam: Present: normal inspection, normal range of motion, no edema Neurological Exam: Present: alert, oriented, normal mood/affect, no motor/ sensory deficits Skin Exam: Present: normal color, warm/dry ED Progress - Results and Orders Patient's Lab Results:: I have reviewed the patient's lab results. - Vital Signs Patient's Vital Signs:: I have reviewed the patient's vital signs. Vital Signs: Vital Signs 07/15/17 19:42 Temperature 36.7 C Pulse Rate 118 H Respiratory 15 Rate Blood Pressure 178/118 O2 Sat by Pulse 100 Oximetry - X-Ray X-Ray #1 X-Ray: abdomen Interpretation: Reviewed by me X-ray Comments: FINDINGS: Abdomen Flat W/ Upright *: No subdiaphragmatic free air. No abnormal dilation of large or small bowel. Mild stool retention noted within colonic segments. Surgical clips are seen in the right upper quadrant, and right lower quadrant as well as in the left side of the pelvis. No definite signs of nephrolithiasis or ureterolithiasis suggested on these images. Osseous structures are intact. IMPRESSION: 1. Stool retention suggestive of constipation. No evidence for obstruction. 2. Surgical changes as above. Electronically signed by Birdie Chong M.D.. - Progress/Reassessment Chief Complaint: Abdominal Pain Progress:: Improved Plan - Plan Plan: Minimal improvement in pain with Toradol but patient reports being sleepy after the Phenergan so maybe she would be able to sleep tonight. Her lab work was unremarkable aside from a new elevation in her liver function tests which may be transient but does not correspond with her current symptoms. Her abdominal x -ray shows stool retention consistent with constipation. She has magnesium slightly treated home and is agreeable to taking this to see if her pain will improve. She asked for additional pain medicine . I discussed with her that any further narcotic pain medications are going to further contribute to her constipation and her pain is probably not going to improve until this has resolved anyway. If her pain continues despite resolution of her constipation, I recommended that she go ahead with the CT scan as ordered by Dr. Conrad. If the pain resolves however, she can contact him and let him know that she is doing better and does not need further workup. She is in agreement with the plan. Departure Clinical Impression: Constipation Qualifiers: Constipation type: unspecified constipation type Qualified Code(s): K59.00 - Constipation, unspecified - Departure Disposition: Home Follow Up Needed Condition: Stable Instructions: Constipation, Adult, [id number] Additional Instructions: Drink the entire bottle of magnesium citrate in the morning If your pain resolves with passage of stool, let Dr. Conrad know that you are doing better but if you continue having pain go ahead with CT scan as planned Referrals: Joel Meraz MD [Primary Care Provider] -
[2017-07-15] MEDS ORDERED: PROMETHAZINE HCL 25 MG/ML AMPUL ONE (20:17)
[2017-07-15 20:27] LABS: Urine Appearance Clear; Urine Bacteria None Seen; Urine Bilirubin Negative (NEGATIVE); Urine Blood Negative /ul (NEGATIVE); Urine Color Yellow; Urine Ketone Negative (NEGATIVE); Urine Nitrite Negative (NEGATIVE); Urine Protein Negative (NEGATIVE); Urine RBC None Seen /hpf (0-5); Urine Specific Gravity 1.015 SP.GR. (1.005-1.010); Urine Urobilinogen Normal (NORMAL); Urine WBC 0-5 /hpf (0-5)
[2017-07-15 20:29] LABS: Hematocrit 41.2 % (37.0-47.0); Hemoglobin 14.2 gm/dL (12.5-16.0); Mean Cell Volume 89.8 fl (78-100); Mean Corpuscular Hemoglobin 30.9 pg (27-31); Mean Corpuscular Hgb Conc 34.5 g/dl (32-36); Mean Platelet Volume 10.7 fl (6.0-9.5); Neutrophil # 4.1 K/mm3 (1.3-6.0); Platelet Count 216 K/mm3 (150-450); Red Blood Count 4.59 M/mm3 (4.2-5.4); Red Cell Distribution Width 12.9 % (11.5-14.0); White Blood Count 7.1 K/mm3 (4.0-10.5)
[2017-07-15 20:48] LABS: Albumin * 3.3 gm/dl (3.4-5.0); Anion Gap 13.8 mmol/L (6.8-13.8); BUN/Creatinine Ratio 19.4 (9.0-21.6); Bilirubin, Total 0.2 mg/dL (0.0-1.1); CRP 0.4 mg/dL (0.0-0.9); Ca. Corrected For Albumin 8.9 mg/dL (8.4-10.2); Calcium * 8.7 mg/dL (7.9-10.9); Carbon Dioxide 27.2 mmol/L (24-32.6); Total Protein 6.8 gm/dL (6.2-8.2)
[2017-07-15 21:44] VITALS: BP 157/108
== END 2017-07-15 21:48 | disposition home or self-care (01) ==
LOC: ER 19:34
DX: K59.00 Constipation, unspecified (principal); G89.29 Other chronic pain; E11.9 Type 2 diabetes mellitus without complications; K21.9 Gastro-esophageal reflux disease without esophagitis; J44.9 Chronic obstructive pulmonary disease, unspecified; I10 Essential (primary) hypertension; F41.8 Other specified anxiety disorders; F17.200 Nicotine dependence, unspecified, uncomplicated

== ENCOUNTER 2017-07-21 18:01 | Emergency (ER) | payer OTHER ==
[2017-07-21] MEDS ORDERED: PROMETHAZINE HCL 25 MG/ML AMPUL IM ONE (18:24)
[2017-07-21] MEDS ORDERED: KETOROLAC TROMETHAMINE 30 MG/ML VIAL IM ONE (18:24)
[2017-07-21] MEDS ORDERED: KETOROLAC TROMETHAMINE 30 MG/ML VIAL ONE (18:30)
[2017-07-21] MEDS ORDERED: PROMETHAZINE HCL 25 MG/ML AMPUL ONE (18:30)
--- NOTE | 2017-07-21 18:46 | ERNOTE ---
Headache ER HPI - Narrative Date of Service: 07/21/17 - General Presenting Symptoms: "migraine" Time Seen by Provider: 07/21/17 18:12 Source: patient Exam Limitations: no limitations - Immun/Allergies/Home Medications Immunizations: IMMUNIZATION HX Immunizations Up to Date Yes History of Influenza Vaccine Yes Hx Pneumococcal Vaccination No Allergies/Adverse Reactions: Allergies lidocaine Allergy (Mild, Verified 07/21/17 18:11) swelling at site lithium Adverse Reaction (Severe, Verified 07/21/17 18:11) Other Suicidal ideations trazodone Adverse Reaction (Intermediate, Verified 07/21/17 18:11) PALPITATIONS adhesive tape Adverse Reaction (Mild, Verified 07/21/17 18:11) LATEX CLOTH TAPE RIPS SKIN OFF azithromycin [From Zithromax] Adverse Reaction (Mild, Verified 07/21/17 18:11) diarrhea, vomiting cephalexin monohydrate [From Keflex] Adverse Reaction (Mild, Verified 07/21/17 18:11) Vomiting clonazepam [From Klonopin] Adverse Reaction (Mild, Verified 07/21/17 18:11) CRYING latex Adverse Reaction (Mild, Verified 07/21/17 18:11) RASH milk Adverse Reaction (Mild, Verified 07/21/17 18:11) Diarrhea onion Adverse Reaction (Mild, Verified 07/21/17 18:11) RASH, GI UPSET povidone-iodine [From Betadine] Adverse Reaction (Mild, Verified 07/21/17 18:11) rash ropinirole HCl [From Requip] Adverse Reaction (Mild, Verified 07/21/17 18:11) Vomiting soap [From Betadine] Adverse Reaction (Mild, Verified 07/21/17 18:11) rash Home Medications: HOME MEDICATIONS Metoprolol Succinate [Toprol Xl] 400 mg PO DAILY 12/08/14 [Last Taken Unknown] Fluticasone Propionate [Flonase] 2 spray NS DAILY PRN 12/06/15 [Last Taken Unknown] Budesonide/Formoterol Fumarate [Symbicort 160-4.5 Mcg Inhaler] 10.2 gm IH DAILY 01/17/17 [Last Taken Unknown] Dexlansoprazole [Dexilant] 30 mg PO DAILY 01/17/17 [Last Taken Unknown] Loratadine 10 mg PO DAILY 01/17/17 [Last Taken Unknown] Tiotropium [place] [Spiriva Respimat] 4 gm IH DAILY 01/17/17 [Last Taken Unknown ] Tramadol HCl [Rybix Odt] 100 mg PO TID 01/17/17 [Last Taken Unknown] Ondansetron [Zofran Odt] 4 mg PO Q6H PRN #20 tab 02/10/17 [Last Taken Unknown] Meclizine HCl [Antivert] 25 mg PO Q8H PRN #12 tablet 06/28/17 [Last Taken Unknown] - History of Present Illness Narrative: Patient presents to the ED with a headache. This is left sided headache. It started this morning and has been worsening throughout the day. No thunderclap onset. No acute N/T/W with this. No fever or recent illness. She has a history of "migraine" headaches but has never seen a specialist. Took Ibuprofen earlier today. Photophobia and nausea with this. She is in a darkened room. She states this is like prior headaches. She has had CT scans in [place] past and tells me she gets these HAs monthly. Not worst DAILY of life. Timing of Headache: gradual, still present, other - recurrent, not thunderclap Context Headache: Absent: new onset Quality: Present: throbbing Severity-Currently: Present: other - like prior, not worst of life Headache frequency: Present: frequent headaches, similar to previous headache Modifying Factors - (Improves): Reports: other - nothing Modifying Factors - (Worsens): Reports: exposure to light Associated Symptoms: Reports: nausea. Denies: fever/chills, weakness, numbness/ tingling, loss of consciousness Exacerbated by:: Reports: light Prior Treament: Denies: recently seen Review of Systems - Review of Systems Constitutional: Absent: fever EYE: Present: see HPI ENT: Absent: sore throat Respiratory: Absent: shortness of breath Cardiology: Absent: chest pain Gastrointestinal/Abdominal: Present: nausea Musculoskeletal: Present: See HPI Skin: Absent: rash Neurological: Absent: weakness - Patient's Past Medical History Patient History - Medical: Anxiety, Chronic Pain, Diabetes Type 2, Depression, GERD, Migraines, Obesity, Seizures Patient History - Cardiac/Respiratory: No pertinent hx Patient History - Cancer: No Hx of Cancer Patient History - Surgical Procedures: Appendectomy, Cholecystectomy, , Hysterectomy, Tubal Ligation, T & A Patient History - Other: None - Family History mom Family History - Medical: History Unknown dad Family History - Medical: History Unknown Family History - Cardiac/Respiratory: No pertinent hx - Social History Living Situations: home Abuse History: No History of abuse Psych History: Hx of Anxiety, Hx of Depression Alcohol Use: none Drug Use: none - Immunizations Immunizations Up to Date: Yes Hx Pneumococcal Vaccination: No History of Influenza Vaccine: Yes Physical Exam - Physical Exam General Appearance: Present: alert, no apparent distress Head Exam: Present: normal inspection, no evidence of injury Eye Exam: Normal inspection: bilateral, PERRL: bilateral Ears, Nose, Throat: Present: normal ENT inspection, normal pharynx, other - no temporal artery tenderness. 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 Absent: facial droop, motor weakness Skin Exam: Present: normal color, warm/dry. Absent: skin rash ED Progress - Vital Signs Patient's Vital Signs:: I have reviewed the patient's vital signs. Vital Signs: Vital Signs 07/21/17 18:07 Temperature 36 C L Pulse Rate 113 H Respiratory 18 Rate Blood Pressure 147/107 O2 Sat by Pulse 100 Oximetry - Progress/Reassessment Chief Complaint: Headache Progress Note-Subjective: 07/21/17 18:43 Same DAILY as prior, recurrent. Nothign to suggest need for emergent CT. Nothing to suggest SAH, meningitis, or need for LP. She has a Hx of the same thing. IM medications given. Departure Clinical Impression: Headache - Departure Disposition: Home self-care Condition: Stable Instructions: Migraine Headache, [id number] Additional Instructions: Rest. Fluids. Follow-up with your doctor in the next 2-3 days for a re-check. I have referred you to Neurology also. Return for fever, numbness, tingling, weakness or if your condition worsens or changes in any way. Referrals: Jemima Barbour ARNP [Primary Care Provider] - Tyler Palomo MD [Consulting Physician] -
[2017-07-21 19:21] VITALS: BP 142/86
== END 2017-07-21 19:20 | disposition home or self-care (01) ==
LOC: ER 18:01
DX: R51 Headache (principal)

== ENCOUNTER 2017-08-11 06:44 | Emergency (ER) | payer MEDICAID ==
[2017-08-11 06:58] VITALS: BP 151/89
--- NOTE | 2017-08-11 07:16 | ERNOTE ---
ENT HPI Date of Service: 08/11/17 Presenting Symptoms: other - sore throat Time Seen by Provider: 08/11/17 07:04 Source: patient - Immun/Allergies/Home Medications Immunizations: IMMUNIZATION HX Immunizations Up to Date No History of Influenza Vaccine No Hx Pneumococcal Vaccination No Allergies/Adverse Reactions: Allergies Allergy/AdvReac Type Severity Reaction Status Date / Time lidocaine Allergy Mild swelling Verified 08/11/17 06:58 at site lithium AdvReac Severe Other Verified 08/11/17 06:58 trazodone AdvReac Intermediate PALPITATION Verified 08/11/17 06:58 S adhesive tape AdvReac Mild LATEX Verified 08/11/17 06:58 CLOTH TAPE RIPS SKIN OFF azithromycin [From Zithromax] AdvReac Mild diarrhea, Verified 08/11/17 06:58 vomiting cephalexin monohydrate AdvReac Mild Vomiting Verified 08/11/17 06:58 [From Keflex] clonazepam [From Klonopin] AdvReac Mild CRYING Verified 08/11/17 06:58 latex AdvReac Mild RASH Verified 08/11/17 06:58 milk AdvReac Mild Diarrhea Verified 08/11/17 06:58 onion AdvReac Mild RASH, GI Verified 08/11/17 06:58 UPSET povidone-iodine AdvReac Mild rash Verified 08/11/17 06:58 [From Betadine] ropinirole HCl [From Requip] AdvReac Mild Vomiting Verified 08/11/17 06:58 soap [From Betadine] AdvReac Mild rash Verified 08/11/17 06:58 Home Medications: HOME MEDICATIONS Metoprolol Succinate [Toprol Xl] 200 mg PO DAILY 12/08/14 [Last Taken Unknown] Fluticasone Propionate [Flonase] 2 spray NS DAILY PRN 12/06/15 [Last Taken Unknown] Budesonide/Formoterol Fumarate [Symbicort 160-4.5 Mcg Inhaler] 10.2 gm IH DAILY 01/17/17 [Last Taken Unknown] Loratadine 10 mg PO DAILY 01/17/17 [Last Taken Unknown] Tiotropium [place] [Spiriva Respimat] 4 gm IH DAILY 01/17/17 [Last Taken Unknown ] Tramadol HCl [Rybix Odt] 100 mg PO TID 01/17/17 [Last Taken Unknown] ALPRAZolam [Xanax] 0.25 mg PO QID PRN 08/09/17 [Last Taken Unknown] Azithromycin [Zithromax] 500 mg PO NOW #6 tab 08/09/17 [Last Taken Unknown] Baclofen 10 mg PO TID 08/09/17 [Last Taken Unknown] Black Cohosh 40 mg PO DAILY 08/09/17 [Last Taken Unknown] Calcium Carbonate/Vitamin D3 [Calcium 500 mg Chewable Tablet] 1 each PO BID 03/19 [Last Taken Unknown] Cyclobenzaprine HCl [Flexeril] 10 mg PO QID PRN 08/09/17 [Last Taken Unknown] Gabapentin [Neurontin] 100 mg PO TID 08/09/17 [Last Taken Unknown] Magnesium 500 mg PO DAILY 08/09/17 [Last Taken Unknown] Pyridoxine HCl (Vitamin B6) [Pyridoxine HCl] 500 mg PO BID 08/09/17 [Last Taken Unknown] Sertraline HCl [Zoloft] 25 mg PO HS 08/09/17 [Last Taken Unknown] Topiramate [Topamax] 50 mg PO DAILY 08/09/17 [Last Taken Unknown] Vitamin E 400 unit PO DAILY 08/09/17 [Last Taken Unknown] - History of Present Illness Narrative: 37 year old that has been having a sore throat for four days. Seen in the ED two days ago and had a negative Rapid Strep/Influenza tests. Has been self treating with an old Amoxicillin for two days. No complaints of fevers or chills. Date (Duration): 08/11/17 Time (Timing): 07:12 Severity: Present: mild ENT Location: Present: throat Prearrival Treatment: Present: over the counter meds, prescription meds Modifying Factors - Improves: Reports: nothing Modifying Factors - Worsens: Reports: nothing Associated Symptoms - ENT: Reports: sore throat Prior Treament: Reports: recently seen, treated by physician Review of Systems - Review of Systems Constitutional: Present: no symptoms reported EYE: Present: no symptoms reported ENT: Present: See HPI Respiratory: Present: no symptoms reported Cardiology: Present: no symptoms reported Gastrointestinal/Abdominal: Present: no symptoms reported Genitourinary: Present: no symptoms reported Musculoskeletal: Present: no symptoms reported Skin: Present: no symptoms reported Neurological: Present: no symptoms reported Endocrine: Present: no symptoms reported Hematologic/Lymphatic: Present: no symptoms reported Psych: Present: no symptoms reported - Patient's Past Medical History Patient History - Medical: Anxiety, Chronic Pain, Diabetes Type 2, Depression, GERD, Migraines, Obesity, Seizures Patient History - Cardiac/Respiratory: No pertinent hx Patient History - Cancer: No Hx of Cancer Patient History - Surgical Procedures: Appendectomy, Cholecystectomy, , Hysterectomy, Tubal Ligation, T & A Patient History - Other: None LMP (females 10-50): hysterectomy - Family History mom Family History - Medical: History Unknown dad Family History - Medical: History Unknown Family History - Cardiac/Respiratory: No pertinent hx - Social History Living Situations: home Abuse History: No History of abuse Psych History: Hx of Anxiety, Hx of Depression Smoking Status: Current every day smoker Alcohol Use: none Drug Use: none - Immunizations Immunizations Up to Date: No Hx Pneumococcal Vaccination: No History of Influenza Vaccine: No Physical Exam - Physical Exam Narrative: Playing will cell phone prior to being examined. General Appearance: Present: no apparent distress Head Exam: Present: normal inspection Eye Exam: Normal inspection: bilateral Ears, Nose, Throat: Present: nasal congestion Neck: Present: normal inspection Respiratory: Present: no respiratory distress Cardiovascular/Chest: Present: regular rate, rhythm Gastrointestinal/Abdominal: Present: nondistended Back Exam: Present: normal inspection Extremity Exam: Present: normal inspection Neurological Exam: Present: alert, oriented Skin Exam: Present: normal color ED Progress - Vital Signs Patient's Vital Signs:: I have reviewed the patient's vital signs. Vital Signs: Vital Signs 08/11/17 06:52 Temperature 36.8 C Pulse Rate 94 Respiratory 16 Rate Blood Pressure 151/89 O2 Sat by Pulse 100 Oximetry - Progress/Reassessment Chief Complaint: Sore Throat Progress:: Unchanged Progress Note-Subjective: 08/11/17 07:15 Initially the patient appeared worried and spoke in a horse voice. After she was told that the Strep tests and cultures that had been done two days ago were negative her voice improved and then she perked up. Departure Clinical Impression: URI (upper respiratory infection) - Departure Disposition: Home self-care Condition: Fair Instructions: Pharyngitis, [id number] Print Language: Croatian Additional Instructions: Gargle with salt water as needed. You can take Tylenol and Chloraseptic spray for pain relief. Return to the ED as needed. Referrals: Jemima Barbour ARNP [Primary Care Provider] -
== END 2017-08-11 07:24 | disposition home or self-care (01) ==
LOC: ER 06:44
DX: J06.9 Acute upper respiratory infection, unspecified (principal); F17.200 Nicotine dependence, unspecified, uncomplicated